=== PATIENT | female | born 1995 | race Caucasian/White ===

== ENCOUNTER 2017-12-15 16:28 | Emergency (ER) | payer OTHER ==
[~2017-12-15] VITALS: Ht 162.6 cm; Wt 87.1 kg
[~2017-12-15 16:28] MED LIST: BCPILLS PO; TTR500 PO
[2017-12-15 16:30] VITALS: TEMP 36.8; Ht 162.6 cm; Wt 87.1 kg
[2017-12-15] MEDS ORDERED: ONDANSETRON INJ 2 MG/ML 2 ML VIAL IV STA (16:44)
[2017-12-15] MEDS ORDERED: SODIUM CHLORIDE 0.9% 1000ML 1,000 ML IV STA (16:44)
--- NOTE | 2017-12-15 16:51 | EMERGENCY ROOM VISIT NOTE ---
History Report prepared by Matt: Paxton Villalpando Under the Supervision of: Dr. Tad Powell D.O. First contact with patient: 16:42 Chief Complaint: ABDOMINAL PAIN Stated Complaint: PAIN IN LOWER RIGHT SIDE TO MIDDLE Nursing Triage Summary: Triage Notes: Patient ambulatory to triage with an upright and steady gait, states "I have pain in my lower right side that radiates into the center of my pelvis. I work for [employer] and they made me come here. I don't know if it's related to my IUD or what. The pain started about a week ago and was cramping until today. The pain is sharper today. I have been spotting a little bit and had discharge earlier in the week. When I pee there is no pressure. It just trickles out. I have been nauseated on and off. I was constipated until this morning, I had the diarrhea." History of Present Illness The patient is a 22 year old female who presents to the Emergency Room with complaints of lower abdominal pain. The patient describes intermittent sharp abdominal pain which began approximately 1 week ago. She states the pain is intermittent. The pain is sometimes worsened with movement but not always. The patient has not been sexually active over the last week. She denies having any vaginal discharge. She denies having any rashes. She has noticed some spotting. She has not had any vomiting but does complain of some nausea. She had one loose bowel movement this morning but noticed no blood or mucus. She states the pain is relieved somewhat with rest. She has not seen her family doctor for this discomfort. She works at [employer] and coworkers encouraged her to come to the ER because at one point this morning the pain was very severe. The patient did not have a fever. She denies having any chest pain or leg swelling. She denies having any recent fevers. The patient does have an IUD. Source of History: patient Onset: 1 week ago Position: abdomen (Lower) Quality: sharp Timing: intermittent Modifying Factors (Worsening): movement Modifying Factors (Relieving): rest Associated Symptoms: + nausea, + diarrhea, No vomiting, No hematochezia Review of Systems See HPI for pertinent positives & negatives. A total of 10 systems reviewed and were otherwise negative. Past Medical & Surgical Medical Problems: (1) Anxiety (2) Depression Anxiety Depression Family History Cancer Diabetes mellitus Heart disease Hypertension Kidney disease Kidney stones Lung disease Social History Smoking Status: Never Smoker Smokeless Tobacco Use: No Alcohol Use: occasionally Drug Use: none Marital Status: single Current/Historical Medications Scheduled Fluoxetine (Prozac), 10 MG PO DAILY Scheduled PRN Lorazepam (Ativan), 0.5-1 TAB PO UD PRN for Anxiety Miscellaneous Medications Iud's (Paragard Intrauterine Cigar Head Perforator) Allergies Coded Allergies: Penicillins (Unverified Allergy, Mild, 12/15/17) Sulfa Drugs (Unverified Allergy, Mild, 12/15/17) Physical Exam Vital Signs Date Time Temp Pulse Resp B/P (MAP) Pulse Ox O2 Delivery O2 Flow Rate FiO2 12/15/17 20:48 80 18 116/79 99 12/15/17 18:23 109 20 134/80 98 Room Air 12/15/17 16:30 36.8 121 20 158/101 98 Room Air Physical Exam GENERAL: Patient is awake alert in no acute distress patient is resting comfortably and showing no signs of anxiety EYES: The conjunctivae are clear. The pupils are round and reactive. EARS, NOSE, MOUTH AND THROAT: The nose is without any evidence of any deformity. Mucous membranes are moist tongue is midline NECK: The neck is nontender and supple. RESPIRATORY: Normal respiratory effort is noted there is no evidence of wheezing rhonchi or rales CARDIOVASCULAR: Regular rate and rhythm noted there no murmurs rubs or gallops normal S1 normal S2 GASTROINTESTINAL: The abdomen is nondistended. The abdomen is soft. There is significant tenderness in the suprapubic region as well as the right lower quadrant. There is no guarding. BACK: No midline tenderness or or step-off noted range of motion in flexion extension as well as rotation no signs of muscle spasm noted MUSCULOSKELETAL/EXTREMITIES: There is no evidence of gross deformity full range of motion is noted in the hips and shoulders SKIN: There is no obvious evidence of any rash. There are no petechiae, pallor or cyanosis noted. NEUROLOGIC: Patient is awake alert and oriented x3. Medical Decision & Procedures ER Provider Diagnostic Interpretation: Radiology results as stated below per my review and radiologist interpretation: ABD/PELVIS IV CONTRAST ONLY CT DOSE: 612.11 mGy.cm HISTORY: Pain rlq pain TECHNIQUE: Multiaxial CT images of the abdomen and pelvis were performed following the use of intravenous contrast. A dose lowering technique was utilized adhering to the principles of ALARA. COMPARISON STUDY: None. FINDINGS: The lung bases are clear. The liver, spleen, gallbladder, pancreas, kidneys, and adrenal glands are within normal limits. No bowel wall thickening or obstruction. The pelvic organs are unremarkable. No suspicious lytic or blastic osseous lesions. Small amount of free fluid within the pelvic cul-de-sac. Intrauterine device considered low-lying with the inferior margin within the cervix. Nonobstructive bowel pattern. The appendix is seen only in part and appears unremarkable. IMPRESSION: 1. Small to moderate free fluid within the pelvic cul-de-sac. 2. This potentially relates to reactive change of the low lying intrauterine device, versus the possibility of a recently ruptured ovarian cyst versus physiologic change. 3. Remainder of the study is remarkable for low-lying intrauterine device with the inferior margin within the cervix. 4. Otherwise negative study. The above report was generated using voice recognition software. It may contain grammatical, syntax or spelling errors. Electronically signed by: Dereje Eid M.D. 12/15/2017 7:33 PM Dictated Date/Time: 12/15/2017 7:26 PM APPENDIX ULTRASOUND HISTORY: Flank pain RLQ pain COMPARISON: None. FINDINGS: Transabdominal scanning of the right lower quadrant was performed. The appendix was not identified. There are no fluid collections or masses within the right lower quadrant. IMPRESSION: The appendix was not identified. The above report was generated using voice recognition software. It may contain grammatical, syntax or spelling errors. Electronically signed by: Dereje Eid M.D. 12/15/2017 6:11 PM Dictated Date/Time: 12/15/2017 6:11 PM PELVIC COMPLETE NON OB CLINICAL HISTORY: RLQ pain PAIN COMPARISON STUDY: None FINDINGS: The uterus measured 7.5 cm. Intrauterine device within the lower uterine segment.. The endometrial stripe measured 8 mm. The right ovary measured 3.4 cm with normal vascular flow. The left ovary measured 3.9 cm with normal vascular flow. There is no ultrasonographic evidence of ovarian torsion. It should be noted that ovarian torsion can be present with normal Doppler ultrasonographic findings. There was no evidence of pathologic free pelvic fluid. IMPRESSION: 1. Intrauterine device within the lower uterine segment. 2. Otherwise negative pelvic ultrasound. The above report was generated using voice recognition software. It may contain grammatical, syntax or spelling errors. Electronically signed by: Dereje Eid M.D. 12/15/2017 6:13 PM Dictated Date/Time: 12/15/2017 6:11 PM Laboratory Results 12/15/17 16:45 Red Blood Count 4.91, Mean Corpuscular Volume 87.0, Mean Corpuscular Hemoglobin 30.5, Mean Corpuscular Hemoglobin Concent 35.1, Mean Platelet Volume 9.3, Neutrophils (%) (Auto) 68.0, Lymphocytes (%) (Auto) 23.4, Monocytes (%) (Auto) 7.3, Eosinophils (%) (Auto) 0.4, Basophils (%) (Auto) 0.6, Neutrophils # (Auto) 6.76, Lymphocytes # (Auto) 2.33, Monocytes # (Auto) 0.73, Eosinophils # (Auto) 0.04, Basophils # (Auto) 0.06 12/15/17 16:45 Test 12/15/17 16:44 12/15/17 16:45 White Blood Count 9.95 K/uL (4.8-10.8) Red Blood Count 4.91 M/uL (4.2-5.4) Hemoglobin 15.0 g/dL (12.0-16.0) Hematocrit 42.7 % (37-47) Mean Corpuscular Volume 87.0 fL (80-100) Mean Corpuscular Hemoglobin 30.5 pg (25-34) Mean Corpuscular Hemoglobin Concent 35.1 g/dl (32-36) Platelet Count 328 K/uL (130-400) Mean Platelet Volume 9.3 fL (7.4-10.4) Neutrophils (%) (Auto) 68.0 % Lymphocytes (%) (Auto) 23.4 % Monocytes (%) (Auto) 7.3 % Eosinophils (%) (Auto) 0.4 % Basophils (%) (Auto) 0.6 % Neutrophils # (Auto) 6.76 K/uL (1.4-6.5) Lymphocytes # (Auto) 2.33 K/uL (1.2-3.4) Monocytes # (Auto) 0.73 K/uL (0.11-0.59) Eosinophils # (Auto) 0.04 K/uL (0-0.5) Basophils # (Auto) 0.06 K/uL (0-0.2) RDW Standard Deviation 39.4 fL (36.4-46.3) RDW Coefficient of Variation 12.4 % (11.5-14.5) Immature Granulocyte % (Auto) 0.3 % Immature Granulocyte # (Auto) 0.03 K/uL (0.00-0.02) Urine Color YELLOW Urine Appearance CLEAR (CLEAR) Urine pH 7.0 (4.5-7.5) Urine Specific [place] 1.020 (1.000-1.030) Urine Protein NEG (NEG) Urine Glucose (UA) NEG (NEG) Urine Ketones NEG (NEG) Urine Occult Blood NEG (NEG) Urine Nitrite NEG (NEG) Urine Bilirubin NEG (NEG) Urine Urobilinogen NEG (NEG) Urine Leukocyte Esterase NEG (NEG) Anion Gap 7.0 mmol/L (3-11) Est Creatinine Clear Calc Drug Dose 109.0 ml/min Estimated GFR () 111.2 Estimated GFR (Non- 95.9 BUN/Creatinine Ratio 6.1 (10-20) Calcium Level 9.0 mg/dl (8.5-10.1) Total Bilirubin 0.3 mg/dl (0.2-1) Direct Bilirubin 0.1 mg/dl (0-0.2) Aspartate Amino Transf (AST/SGOT) 8 U/L (15-37) Alanine Aminotransferase (ALT/SGPT) 16 U/L (12-78) Alkaline Phosphatase 59 U/L (45-117) Total Protein 8.8 gm/dl (6.4-8.2) Albumin 4.7 gm/dl (3.4-5.0) Human Chorionic Gonadotropin, Qual NEG (NEG) Laboratory results per my review. Medications Administered Medications (Trade) Dose Ordered Sig/Shorty Route Start Time Stop Time Status Last Admin Dose Admin Ondansetron HCl (Zofran Inj) 4 mg NOW STAT IV 12/15/17 16:44 12/15/17 16:46 DC 12/15/17 16:57 4 MG Sodium Chloride 1,000 ml @ 999 mls/hr Q1H1M STAT IV 12/15/17 16:44 12/15/17 17:44 DC 12/15/17 16:56 999 MLS/HR ED Course 1642: The patient was evaluated in room C8. A complete history and physical examination were performed. 1644: Ordered Sodium Chloride 1000 mL @ 999 mL/hr IV, Zofran 4 mg IV. 2020: Upon reevaluation, the patient is resting in bed. I discussed the results and treatment plan with her. She verbalized agreement of the treatment plan. The patient was discharged home. Medical Decision Prior records/ancillary studies reviewed. Triage Nursing notes reviewed. Differential diagnosis: Etiologies such as appendicitis, diverticulitis, PUD, biliary pathology, UTI, pancreatitis, obstruction, mesenteric ischemia, aortic pathology, infections, inflammatory bowel disease, renal colic, as well as others were entertained. The patient is a 22-year-old female who presented to the emergency department for an evaluation of lower abdominal pain. The patient states that initially her pain was sharp. The pain was intermittent. Her physical exam did not appear to be consistent with an acute surgical abdomen. She did appear to have some right lower quadrant tenderness I thought this could be consistent with appendicitis. Ultrasound did not reveal any acute cause for the patient's pain. For this reason CT abdomen and pelvis was obtained. Patient was treated with IV fluids and IV Zofran. I discussed patient's laboratory and radiographic studies with her. At this time it does appear to be consistent with a migrating IUD. She was found to have some free fluid in the pelvis which could be related to an ovarian cyst. I discussed some of these possibilities with her. At this time I recommended that she call her primary OB /HEALTH AID physician and schedule a follow-up appointment. Also recommended that she continue all medications as prescribed and return to the emergency department immediately if symptoms change worsen or the need arise. The patient denied at this could be related to any sexually transmitted disease and at this time she states that she has no discharge but does have some spotting. Medication Reconcilliation Current Medication List: was personally reviewed by me Blood Pressure Screening Patient's blood pressure: Elevated blood pressure Blood pressure disposition: Elevated BP felt to be situational Impression Primary Impression: Right lower quadrant abdominal pain Scribe Attestation The scribe's documentation has been prepared under my direction and personally reviewed by me in its entirety. I confirm that the note above accurately reflects all work, treatment, procedures, and medical decision making performed by me. Departure Information Dispostion Home / Self-Care Referrals Ronaldo Nunez M.D. (PCP) Forms HOME CARE DOCUMENTATION FORM, IMPORTANT VISIT INFORMATION Patient Instructions My [facility] Additional Instructions Call your primary [facility] [employer] physician in the morning to schedule a follow-up appointment. Continue to use Motrin and Tylenol as directed for pain. Rest and avoid any strenuous activity. Return to the emergency department immediately if symptoms change worsen or the need arises.
[2017-12-15 17:01] LABS: BASO % 0.6 %; BASO ABS # 0.06 K/uL (0-0.2); EOS % 0.4 %; EOS ABS # 0.04 K/uL (0-0.5); HEMATOCRIT 42.7 % (37-47); IG# 0.03 K/uL (0.00-0.02); LYMPH % 23.4 %; LYMPH ABS # 2.33 K/uL (1.2-3.4); MEAN CORPUSCULAR HEMOGLOBIN 30.5 pg (25-34); MEAN CORPUSCULAR HGB CONC 35.1 g/dl (32-36); MEAN PLATELET VOLUME 9.3 fL (7.4-10.4); MONO % 7.3 %; MONO ABS # 0.73 K/uL (0.11-0.59); NEUT ABS # 6.76 K/uL (1.4-6.5); PLATELET COUNT 328 K/uL (130-400); RED CELL DISTRIBUTION WIDTH CV 12.4 % (11.5-14.5); RED CELL DISTRIBUTION WIDTH SD 39.4 fL (36.4-46.3); WHITE BLOOD COUNT 9.95 K/uL (4.8-10.8)
[2017-12-15 17:23] LABS: ALBUMIN 4.7 gm/dl (3.4-5.0); CREATININE 0.85 mg/dl (0.60-1.20); POTASSIUM 3.2 mmol/L (3.5-5.1); TOTAL PROTEIN 8.8 gm/dl (6.4-8.2)
[2017-12-15] MEDS ORDERED: LORA-741 PO (17:49)
[2017-12-15] MEDS ORDERED: FLUO10CA48 PO (17:49)
[2017-12-15] MEDS ORDERED: IUD'IUD (17:49)
--- NOTE | 2017-12-15 18:12 | DIAGNOSTIC IMAGING REPORT ---
APPENDIX ULTRASOUND HISTORY: Flank pain RLQ pain COMPARISON: None. FINDINGS: Transabdominal scanning of the right lower quadrant was performed. The appendix was not identified. There are no fluid collections or masses within the right lower quadrant. IMPRESSION: The appendix was not identified. The above report was generated using voice recognition software. It may contain grammatical, syntax or spelling errors. Electronically signed by: Dereje Eid M.D. 12/15/2017 6:11 PM Dictated Date/Time: 12/15/2017 6:11 PM
--- NOTE | 2017-12-15 18:14 | DIAGNOSTIC IMAGING REPORT ---
PELVIC COMPLETE NON OB CLINICAL HISTORY: RLQ pain PAIN COMPARISON STUDY: None FINDINGS: The uterus measured 7.5 cm. Intrauterine device within the lower uterine segment.. The endometrial stripe measured 8 mm. The right ovary measured 3.4 cm with normal vascular flow. The left ovary measured 3.9 cm with normal vascular flow. There is no ultrasonographic evidence of ovarian torsion. It should be noted that ovarian torsion can be present with normal Doppler ultrasonographic findings. There was no evidence of pathologic free pelvic fluid. IMPRESSION: 1. Intrauterine device within the lower uterine segment. 2. Otherwise negative pelvic ultrasound. The above report was generated using voice recognition software. It may contain grammatical, syntax or spelling errors. Electronically signed by: Dereje Eid M.D. 12/15/2017 6:13 PM Dictated Date/Time: 12/15/2017 6:11 PM
[2017-12-15] MEDS ORDERED: OPTIRAY 320 IV PRN (18:45)
--- NOTE | 2017-12-15 19:34 | DIAGNOSTIC IMAGING REPORT ---
ABD/PELVIS IV CONTRAST ONLY CT DOSE: 612.11 mGy.cm HISTORY: Pain rlq pain TECHNIQUE: Multiaxial CT images of the abdomen and pelvis were performed following the use of intravenous contrast. A dose lowering technique was utilized adhering to the principles of ALARA. COMPARISON STUDY: None. FINDINGS: The lung bases are clear. The liver, spleen, gallbladder, pancreas, kidneys, and adrenal glands are within normal limits. No bowel wall thickening or obstruction. The pelvic organs are unremarkable. No suspicious lytic or blastic osseous lesions. Small amount of free fluid within the pelvic cul-de-sac. Intrauterine device considered low-lying with the inferior margin within the cervix. Nonobstructive bowel pattern. The appendix is seen only in part and appears unremarkable. IMPRESSION: 1. Small to moderate free fluid within the pelvic cul-de-sac. 2. This potentially relates to reactive change of the low lying intrauterine device, versus the possibility of a recently ruptured ovarian cyst versus physiologic change. 3. Remainder of the study is remarkable for low-lying intrauterine device with the inferior margin within the cervix. 4. Otherwise negative study. The above report was generated using voice recognition software. It may contain grammatical, syntax or spelling errors. Electronically signed by: Dereje Eid M.D. 12/15/2017 7:33 PM Dictated Date/Time: 12/15/2017 7:26 PM
[2017-12-15 20:48] VITALS: BP 116/79; PULSE 80; O2SAT 99
== END 2017-12-15 20:51 | disposition home or self-care (01) ==
LOC: C.EDB 16:30 → C.EDC 20:51
DX: R10.31 Right lower quadrant pain (principal); F41.9 Anxiety disorder, unspecified; F32.9 Major depressive disorder, single episode, unspecified; Z79.899 Other long term (current) drug therapy; Z88.0 Allergy status to penicillin; Z88.2 Allergy status to sulfonamides

== ENCOUNTER 2023-07-08 18:44 | Inpatient (IN) ==
[2023-07-08] MEDS ORDERED: OXYTOCIN 30 UNITS/NSS 30 UNITS/500 ML BAG IV PRN (19:26)
[2023-07-08] MEDS ORDERED: LIDOCAINE 1% LOCAL 20 ML VIAL INFIL PRN (19:26)
--- NOTE | 2023-07-08 19:31 | History & Physical Report ---
Date of Service July 08, 2023 History of Present Illness Chief Complaint: ruptured membranes Primary Care Provider: Ronaldo Nunez MD 28 F P0000 at 36.2 weeks with SROM at 6 PM tonight clear fluid. GBS is unknown. Allergies Allergy/AdvReac Type Severity Reaction Status Date / Time Penicillins Allergy Mild Unverified 12/15/17 16:30 Sulfa (Sulfonamide Allergy Mild Unverified 12/15/17 16:30 Antibiotics) Home Medications Medication Instructions Recorded Confirmed Type 1 tab PO DAILY 03/10/23 03/10/23 History cetirizine 10 mg tablet (Zyrtec) 10 mg PO DAILY 03/10/23 03/10/23 History fluoxetine 20 mg tablet 20 mg PO DAILY 03/10/23 03/10/23 History fluticasone propionate 50 1 spray intranasal DAILY 03/10/23 03/10/23 History mcg/actuation nasal spray,suspension Patient History Social History Smoking Status: Never smoker Preferred Language: Urdu Feels Safe at Home: Yes OB History primip [employer] History neg Review of Systems All systems reviewed & are unremarkable except as noted in HPI & below Physical Exam Constitutional: WD/WN, vitals as above Eyes: PERRL, conjunctivae normal, anicteric sclerae Respiratory: normal respiratory effort, lungs clear to auscultation Cardiovascular: RRR, no murmur, no edema Musculoskeletal: Extremities: extremities normal to inspection Skin: no rashes, warm and dry Neurologic: patellar DTR's 2+ bilat, sensation intact Psychiatric: A+Ox3, euthymic affect Genitourinary: no vaginal lesions, no adnexal mass Manual OB Exam: + cervical dilation 2 cm, + cervical effacement 90%, + station -2 and + amniotic fluid clear OB Exam Monitor Tracing: + external FHT monitor used, + external uterine monitor used, + category I and + normal FHT variability EFW 7.5 lbs. Results & Data Vital Signs (Past 12 Hours) Vital Signs Pulse BP 07/08/23 18:56 107 H 119/82 Code Status & VTE Plan VTE Prophylaxis Plan VTE Prophylaxis will be ordered: No
[2023-07-08] MEDS ORDERED: SODIUM CHLORIDE 0.9% 250 ML IV PRN (19:55)
[2023-07-08 21:04] LABS: Hematocrit (blood only) 33.9 % (37.0-47.0); Hemoglobin 11.6 g/dl (12.0-16.0); Mean Corpuscular Hemoglobin 29.5 pg (25.0-34.0); Mean Corpuscular Hgb Conc 34.2 g/dL (32.0-36.0); Mean Corpuscular Volume 86.3 fL (80.0-100.0); Mean Platelet Volume 9.7 fL (9.4-12.4); Platelet Count 291 K/uL (130-400); RDW Coefficient of Variation 12.7 % (11.5-14.5); RDW Standard Deviation 39.6 fL (36.4-46.3); Red Blood Count 3.93 M/uL (4.20-5.40); White Blood Count 17.23 K/ul (4.8-10.8)
--- OUTSIDE RECORDS SUMMARY | 2023-07-09 00:14 | External Medical Summary | Summary of Care ---
Author Name Unknown Organization [facility] Address [address] [place] [address] Phone [phone] Care Team Providers Care Rfid Specialist Name Role Phone Ronaldo Nunez MD Primary Care Provider +1- [phone] Reason for Visit * Reason Comments Return Visit Encounter Details Date Type Department Care Team (Late st Contact Info) Description 06/14/2023 8:30 AM EST [facility] [address] [place] [address] Liza Washington CRNP [address] [place] [address] Normal in third trimester*; Anxiety during ; Depression complicating , antepartum; Obesity in , antepartum; Uterine size date discrepancy Allergies Active Allergy Reactions Criticality Noted Date Comments Gold Rash 04/19/2018 Penicillins 12/17/1998 rash Sulfa Antibiotics 12/17/1998 rash documented as of this encounter (statuses as of 06/14/2023) Medications Medication Sig Dispensed Refills Start Date End Date Status cetirizine (ZYRTEC) 10 MG Tablet Take 1 Tab by mouth daily as needed (itching, rash). 0 03/16/2018 Active 28-0.8 MG Oral Tablet Take by mouth. 0 Active FLUoxetine HCl 20 MG Oral Tablet (PROzac) take 1 tablet by mouth every morning 30 Tablet 2 02/06/2023 Active Fluticasone Propionate 50 MCG/ACT Nasal Suspension (Flonase) Administer 1 [place] into nostril in the morning. 0 Active FLUoxetine HCl 20 MG Oral Tablet (PROzac) Take one tab by mouth every morning 90 Tablet 0 03/23/2023 Active Breast Pump Dispense double electric breast pump. Dx:Z39.1 1 Each 0 05/18/2023 Active documented as of this encounter (statuses as of 06/14/2023) Active Problems Problem Noted Date Diagnosed Date Normal 12/28/2022 Anxiety during 12/28/2022 Depression complicating , antepartum Overview: On Prozac. Sees Hemalatha Webber PA-C at [facility] for medication management. Sees a therapist monthly. Obesity in , antepartum 12/28/2022 Overview: Class 1, early GTT normal Major depressive disorder, recurrent, moderate 0 01/12/2021 Depression with anxiety 01/21/2019 Panic disorder 10/14/2015 Obesity, Class I, BMI 30.0-34.9 (see actual BMI) 06/16/2011 ACNE VULGARIS 05/10/2006 Allergic rhinitis 04/24/2000 Estimated Date of Delivery Comme nts Yes 08/03/2023 Based on last me nstrual period of 10/27/2022 documented as of this encounter (statuses as of 06/14/2023) Resolved Problems Problem Noted Date Diagnosed Date Resolved Date Pain in limb 08/18/2011 09/26/2014 Injury of hand 08/18/2011 09/26/2014 Sprain of wrist 08/18/2011 09/26/2014 Otalgia 05/10/2006 09/26/2014 ACUTE SWIMMERS' EAR, RIGHT 05/10/2006 0 09/26/2014 Epistaxis 05/10/2006 01/03/2018 ADVANCE DIRECTIVE INFORMATION 02/22/2005 01/03/2018 Overview: Not applicable (under age of 18) SINUS ARRHYTHMIA 01/21/2002 03/02/2018 Undiagnosed cardiac murmurs 01/21/2002 06/16/2011 OTITIS MEDIA, RECURRENT, NOW WITH PE TUBES 04/24/2000 09/26/2014 Routine child health exam 04/24/2000 Otitis media 09/26/2014 Depression 03/08/2019 documented as of this encounter (statuses as of 06/14/2023) Immunizations Name Administration Dates Next Due COVID-19 mRNA, LNP-s, No Pre serve, 2-Dose Series (Pfizer) 05/19/2021,06/02/2020,05/12/2020 HPV Vaccine, 9-Valent 09/04/2018,03/29/2018,10/14 Meningococcal Conjugate Vacc ine (Menactra/Menveo) 03/16/2009 Seasonal Influenza, PF, 6 M & above, IM , (FluLaval or Fluzone) 03/08/2023,03/11/2022,03/03/2021 Seasonal Influenza, Quadriva lent, No Preserve, IM 02/01/2020,02/27/2019,02/27/2018,06/13 Seasonal Influenza, Split, I IV3, With Preserve, Inj 02/13/2016 TD, Preservative Free 11/25/2015 TDAP (age 10 and older)(Boostrix) 05/18/2023 Varicella Vaccine (Chicken Pox) 06/13/2007 documented as of this encounter Social History Tobacco Use Types Packs/Day Years Used Date Smoking Tobacco: Never Passive Smoke Exposure: Never Smokeless Tobacco: Never Comments:non smoking househo ld Alcohol Use Standard Drinks/Week Comments Not Currently 0 (1 standard drink = 0.6 oz pur e alcohol) once a month if that PHQ-2 Answer Date Recorded PHQ Adult Total Score 0 02/08/2022 Hunger Vital Sign Answer Date Recorded Within the past 12 months, y ou worried that your food would run out before you got the money to buy more. Never true 12/29/19 23 Within the past 12 months, t he food you bought just didn't last and you didn't have money to get more. Never true 12/28/2022 [place] Depression Scale Answer Date Recorded [place] Depression Scale Total 16 12/28/2022 The thought of harming myself has occurred to me . Never 12/28/2022 Estimated Date of Delivery Comme nts Yes 08/03/2023 Based on last me nstrual period of 10/27/2022 Sex and Gender Information Value Date Recorded Sex Assigned at Female 12/05/2018 3:55 PM EDT Gender Identity Female 12/05/2018 3:55 PM EDT Sexual Orientation Choose not to disclose 2022 6:28 AM EDT Job Start Date Occupation Industry Not on file Not on file Not on file documented as of this encounter Last Filed Vital Signs Vital Sign Reading Time Taken Comments Blood Pressure 118/74 06/14/2023 8:25 AM EST Pulse - - Temperature - - Respiratory Rate - - Oxygen Saturation - - Inhaled Oxygen Concentration - - Weight 113.9 kg (251 lb 3.2 oz) 06/14/2023 8:25 AM EST Height 165.1 cm (5' 5") 06/14/2023 8:25 AM EST Body Mass Index 41.8 06/14/2023 8:25 AM EST documented in this encounter Progress Notes * Liza Washington CRNP - 06/14/2023 8:30 AM EST 32w6d Increased pelvic pressure, otherwise well. Baby is active. No ctx, leaking or bleeding. Swelling in her feet, discussed remedies. Recommend CBE classes, looking at peds. S>D, will schedule growth scan. 2 week return WENDY Puri documented in this encounter Nursing Notes * Raquel Marley RN - 06/14/2023 8:26 AM EST Patient here for REECE visit 32w6d + FM No concerns Raquel Marley RN documented in this encounter Plan of Treatment Upcoming Encounters Date Type Department Care Team (Late st Contact Info) Description 06/14/2023 10:45 AM EST Imaging Radiology [facility] 2nd [facility] [address] [place] [address] 06/28/2023 8:15 AM EST Office Visit Gynecology/Obstetrics [facility] [address] [place] [address] Aniya Tomlinson CRNP [address] [place] [address] 02/12/2024 8:00 AM EDT Office Visit Family [facility] [address] [place] [facility] [place] [phone] Ronaldo Nunez MD [address] [place] [address] Scheduled Orders Name Type Priority Associated Diagnoses Orde r Schedule US PREG FOLLOW-UP EACH FETUS Medical Imaging Routine Uterine size date discrepancy Expected: 06/14/2023 (Approximate), Expires: 07/12/2024 Health Maintenance Due Date Last Done Comments COVID-19 Vaccine ( season) 2023 05/19/2021, 06/02/2020, 05/12/2020 Depression Screening 02/08/2023 02/08/2022 HPV/Co-Test 2023 Cervical Cancer Screening 08/23/2024 Pap Smear 08/23/2024 08/23/2021, 04/0 09/2018, 10/23/2015, Additional history exists DTaP,Tdap,and Td Vaccines (9 - Td or Tdap) 05/18/2033 05/18/2023, 11/25/2015, 02/22/2005, Additional history exists Hepatitis B Completed 01/04/1994, 05/15, 1993 MENINGOCOCCAL (MENACTRA/MENVEO) Aged Out 03/16/2009 No longer eligible based on patient's age to complete this topic GARDASIL-HPV IMMUNIZATION SERIES Addressed 09/04/2018, 03/29/2018, 11/06/2017, Additional history exists Overridden with the intention of not completing the topic Influenza Vaccine (FLU shot) Completed 03/08/2023, 03/11/2022, 03/03/2021, Additional history exists Pneumococcal Vaccine: Pediatrics (0 to 5 Years) and At-Risk Patients (6 to 64 Years) Aged Out No longer eligible based on patient's age to complete this topic documented as of this encounter Medical Devices Not on filedocumented as of this encounter Visit Diagnoses Diagnosis Normal in third trimester- Primary Anxiety during Depression complicating , antepartum Mental disorders of mother, antepartum Obesity in , antepartum Obesity complicating , childbirth, or the puerperium, antepartum condition or complication Uterine size date discrepancy Uterine size date discrepancy, antepartum condition or complication documented in this encounter Care Teams Rfid Specialist Relationship Specialty Start Date End Date Ronaldo Nunez MD [address] [place] [address] PCP - General 02/13/00 documented as of this encounter
--- OUTSIDE RECORDS SUMMARY | 2023-07-09 00:14 | External Medical Summary | Summary of Care ---
Author Name Unknown Organization [facility] Address [address] [place] [address] Phone [phone] Care Team Providers Care Travel Pta Name Role Phone Ronaldo Nunez MD Primary Care Provider [phone]- [phone] Reason for Visit * Reason Comments Return Visit Encounter Details Date Type Department Care Team (Late st Contact Info) Description 05/18/2023 10:30 AM EST Office Visit Gynecology/Obstetric s [facility] [address] [place] [address] Aniya Tomlinson CRNP [address] [place] [address] Normal in third trimester*; Anxiety during ; Depression complicating , antepartum; Obesity in , antepartum Allergies Active Allergy Reactions Criticality Noted Date Comments Gold Rash 04/19/2018 Penicillins 12/17/1998 rash Sulfa Antibiotics 12/17/1998 rash documented as of this encounter (statuses as of 05/18/2023) Medications Medication Sig Dispensed Refills Start Date [...] 50 MCG/ACT Nasal Suspension (Flonase) Administer 1 [place] into nostril in the morning. 0 Active FLUoxetine HCl 20 MG Oral Tablet (PROzac) Take one tab by mouth every morning 90 Tablet 0 03/23/2023 Active Breast Pump Dispense double electric breast pump. Dx:Z39.1 1 Each 0 05/18/2023 Active documented as of this encounter (statuses as of 05/18/2023) Active Problems Problem Noted Date Diagnosed Date Normal 12/28/2022 Anxiety during 12/28/2022 Depression complicating , antepartum Overview: On Prozac. Sees Hemalatha Webber PA-C at [facility] for medication management. Sees a therapist monthly. [...] as of this encounter (statuses as of 05/18/2023) Resolved Problems Problem Noted Date Diagnosed Date [...] as of this encounter (statuses as of 05/18/2023) Immunizations Name Administration Dates Next Due COVID-19 [...] money to get more. Never true 12/28/2022 [place] Depression Scale Answer Date Recorded [place] Depression Scale Total 16 12/28/2022 The thought [...] Sign Reading Time Taken Comments Blood Pressure 118/68 05/18/2023 10:19 AM EST Pulse - - Temperature - - Respiratory Rate - - Oxygen Saturation - - Inhaled Oxygen Concentration - - Weight 108.9 kg (240 lb) 05/18/2023 10:19 AM EST Height 167 cm (5' 5.75") 05/18/2023 10:19 AM EST Body Mass Index 39.03 05/18/2023 10:19 AM EST documented in this encounter Progress Notes * Aniya Tomlinson CRNP - 05/18/2023 10:35 AM EST 29w0d Complaints: none Feeling well. . Good FM. No contractions, bleeding, or LOF. Glucola, TDAP today. Breast pump rx today. WENDY Kohli * Carmela Zheng LPN - 05/18/2023 10:19 AM EST 29w0d Doing glucola Would like tdap documented in this encounter Nursing Notes * Carmela Zheng LPN - 05/18/2023 10:25 AM EST Patient here for tdap injection. Patient doing well no complaints. Injection given IM as ordered. Patient tolerated well. Patient to follow up as directed. Patient instructed to call if any complications. Patient verbalized understanding of instructions given and her follow up appt for 2 weeks Injection site: Left deltoid Medication Source: Dispensed stock medication documented in this encounter Plan of Treatment Upcoming Encounters Date Type Department Care Team (Late st Contact Info) Description 06/01/2023 8:15 AM EST Office Visit Gynecology/Obstetrics [facility] [address] [facility] [place] [address] Aniya Tomlinson CRNP [address] [place] [id number] 02/12/2024 8:00 AM EDT Office Visit [facility] [address] [place] [phone] Ronaldo Nunez MD [address] [place] [address] Health Maintenance Due Date Last Done Comments COVID-19 Vaccine ( season) 2023 05/19/2021, 06/02/2020, 05/12/2020 Depression Screening 02/08/2023 02/08/2022 HPV/Co-Test 2023 Cervical Cancer Screening 08/23/2024 Pap Smear 08/23/2024 08/23/2021, 0409/2018, 10/23/2015, Additional history exists DTaP,Tdap,and Td Vaccines [...] or the puerperium, antepartum condition or complication documented in this encounter Care Teams Travel Pta Relationship Specialty Start Date End Date Ronaldo Nunez MD [address] [place] [address] PCP - General 02/13/00 documented as of this encounter
--- OUTSIDE RECORDS SUMMARY | 2023-07-09 00:14 | External Medical Summary | Summary of Care ---
Author Name Unknown Organization [facility] Address [address] [place] [address] Phone [phone] Care Team Providers Care Rn Examiner Name Role Phone Ronaldo Nunez MD Primary Care Provider +1- [phone] Encounter Details Date Type Department Care Team (Late st Contact Info) Description 05/29/2023 Telephone Gynecology/Obstetrics [facility] [address] [place] [address] Lior De Souza MD [address] [place] [address] Allergies Active Allergy Reactions Criticality Noted Date Comments Gold Rash 04/19/2018 Penicillins 12/17/1998 rash Sulfa Antibiotics 12/17/1998 rash documented as of this encounter (statuses as of 05/29/2023) Medications Medication Sig Dispensed Refills Start Date [...] 50 MCG/ACT Nasal Suspension (Flonase) Administer 1 [place] into nostril in the morning. 0 Active FLUoxetine HCl 20 MG Oral Tablet (PROzac) Take one tab by mouth every morning 90 Tablet 0 03/23/2023 Active Breast Pump Dispense double electric breast pump. Dx:Z39.1 1 Each 0 05/18/2023 Active documented as of this encounter (statuses as of 05/29/2023) Active Problems Problem Noted Date Diagnosed Date Normal 12/28/2022 Anxiety during 12/28/2022 Depression complicating , antepartum Overview: On Prozac. Sees Hemalatha Webber PA-C at [place] for medication management. Sees a therapist monthly. [...] as of this encounter (statuses as of 05/29/2023) Resolved Problems Problem Noted Date Diagnosed Date [...] as of this encounter (statuses as of 05/29/2023) Immunizations Name Administration Dates Next Due COVID-19 [...] money to get more. Never true 12/28/2022 [place] Depression Scale Answer Date Recorded [place] Depression Scale Total 16 12/28/2022 The thought [...] on file documented as of this encounter Miscellaneous Notes * Telephone Encounter - Raquel Marley RN - 05/29/2023 2:44 PM EST Patient called in about a fall she just had at home. She was sitting in an office chair and leaned too far forward and fell off the chair onto her hands and feet. She caught herself. No hard fall or fall onto stomach. Denies leaking, bleeding, contractions or new onset pain. Patient reports + FM today. She was made aware to push fluids, and count movements over the next 2 hours, to ensure movements. Patient aware to call back with any changes, DFM, or questions. documented in this encounter Plan of Treatment Upcoming Encounters Date Type Department Care Team (Late st Contact Info) Description 06/01/2023 8:15 AM EST Office Visit Gynecology/Obstetrics [facility] [address] [place] [address] Aniya Tomlinson CRNP [address] [place] [address] 02/12/2024 8:00 AM EDT [facility] Visit [facility] [address] [facility] [phone] Ronaldo Nunez MD [address] [facility] [phone] Health Maintenance Due Date Last Done Comments COVID-19 Vaccine ( season) 2023 05/19/2021, 06/02/2020, 05/12/2020 Depression Screening 02/08/2023 02/08/2022 HPV/Co-Test 2023 Cervical Cancer Screening 08/23/2024 Pap Smear 08/23/2024 08/23/2021, 09/2018, 10/23/2015, Additional history exists DTaP,Tdap,and Td [...] Not on filedocumented as of this encounter Care Teams Rn Examiner Relationship Specialty Start Date End Date Ronaldo Nunez MD [address] [place] [address] PCP - General 02/13/00 documented as of this encounter
--- OUTSIDE RECORDS SUMMARY | 2023-07-09 00:14 | External Medical Summary | Summary of Care ---
Author Name Unknown Organization [facility] Address [address] [place] [address] Phone [phone] Care Team Providers Care Internet Assessor Name Role Phone Ronaldo Nunez MD Primary Care Provider +1- [phone] Reason for Visit * Reason Comments Outpatient Testing Encounter Details Date Type Department Care Team (Late st Contact Info) Description 05/18/2023 10:20 AM EST Laboratory Laboratory, [facility] [address] [place] [phone] [facility] [address] [place] [address] Normal in second trimester Allergies Active Allergy Reactions Criticality Noted Date [...] 50 MCG/ACT Nasal Suspension (Flonase) Administer 1 [place] into nostril in the morning. 0 Active FLUoxetine HCl 20 MG Oral Tablet (PROzac) Take one tab by mouth every morning 90 Tablet 0 03/23/2023 Active documented as of this encounter (statuses as of 05/18/2023) Active Problems Problem Noted Date Diagnosed Date Normal 12/28/2022 Anxiety during 12/28/2022 Depression complicating , antepartum Overview: On Prozac. Sees Hemalatha Webber PA-C at [place] for medication management. Sees a therapist monthly. [...] money to get more. Never true 12/28/2022 [place] Depression Scale Answer Date Recorded [place] Depression Scale Total 16 12/28/2022 The thought [...] on file documented as of this encounter Plan of Treatment Upcoming Encounters Date Type Department Care Team (Late st Contact Info) Description 06/01/2023 8:15 AM EST [facility] [address] [facility] [place] [address] Aniya Tomlinson CRNP [address] [place] [address] 02/12/2024 8:00 AM EDT Office Visit [facility] [address] [place] [phone] Ronaldo Nunez MD [address] [place] [address] Pending Results Name Type Priority Associated Diagnoses Date /Time 50-G GESTATIONAL GLUCOSE, 1 HOUR Lab Routine Normal in second trimester 05/18/2023 11:19 AM EST CBC WITH WBC DIFFERENTIAL AND ANEMIA REFLEX WORKUP Lab Routine Normal in second trimester 05/18/2023 11:19 AM EST SYPHILIS ANTIBODY SCREEN WITH REFLEX TO RPR Lab Routine Normal in second trimester 05/18/2023 11:19 AM EST ANEMIA CBC Lab Routine Normal in second trimester 05/18/2023 11:19 AM EST DIFFERENTIAL, AUTOMATED Lab Routine Normal in second trimester 05/18/2023 11:19 AM EST ANEMIA REFLEX CHEMISTRY HOLD Lab Routine Normal in second trimester 05/18/2023 11:19 AM EST SYPHILIS ANTIBODY SCREEN Lab Routine Normal in second trimester 05/18/2023 11:19 AM EST Health Maintenance Due Date Last Done Comments [...] this encounter Visit Diagnoses Diagnosis Normal in second trimester documented in this encounter Care Teams Internet Assessor Relationship Specialty Start Date End Date Ronaldo Nunez MD [address] [place] [address] PCP - General 02/13/00 documented as of this encounter
--- OUTSIDE RECORDS SUMMARY | 2023-07-09 00:14 | External Medical Summary | Summary of Care ---
Author Name Unknown Organization [facility] Address [address] [place] [address] Phone [phone] Care Team Providers Care Incident Response Coordinator Name Role Phone Ronaldo Nunez MD Primary Care Provider +1- [phone] Reason for Visit * Reason Comments Return Visit Encounter Details Date Type Department Care Team (Late st Contact Info) Description 06/28/2023 8:15 AM EST Office Visit [facility] [address] [place] [address] Aniya Tomlinson CRNP [address] [place] [address] Normal in third trimester*; Anxiety during ; Depression complicating , antepartum; Obesity in , antepartum; Excessive growth affecting management of , antepartum, single or unspecified fetus Allergies Active Allergy Reactions Criticality Noted Date Comments Gold Rash 04/19/2018 Penicillins 12/17/1998 rash Sulfa Antibiotics 12/17/1998 rash documented as of this encounter (statuses as of 06/28/2023) Medications Medication Sig Dispensed Refills Start Date [...] 50 MCG/ACT Nasal Suspension (Flonase) Administer 1 [place] into nostril in the morning. 0 Active FLUoxetine HCl 20 MG Oral Tablet (PROzac) Take one tab by mouth every morning 90 Tablet 0 03/23/2023 Active Breast Pump Dispense double electric breast pump. Dx:Z39.1 1 Each 0 05/18/2023 Active documented as of this encounter (statuses as of 06/28/2023) Active Problems Problem Noted Date Diagnosed Date LGA (large for gestational a ge) fetus affecting management of mother 06/19/2023 Overview: 94th %ile at 33 weeks Normal 12/28/2022 Anxiety during 12/28/2022 Depression complicating , antepartum Overview: On Prozac. Sees Hemalatha Webber PA-C at [place] for medication management. Sees a therapist monthly. [...] as of this encounter (statuses as of 06/28/2023) Resolved Problems Problem Noted Date Diagnosed Date [...] as of this encounter (statuses as of 06/28/2023) Immunizations Name Administration Dates Next Due COVID-19 mRNA, LNP-s, No Pre serve, 2-Dose Series ([employer]) 05/19/2021,06/02/2020,05/12/2020 HPV Vaccine, 9-Valent 09/04/2018,03/29/2018,10/14 Meningococcal Conjugate [...] money to get more. Never true 12/28/2022 Paris Depression Scale Answer Date Recorded Paris Depression Scale Total 7 06/28/2023 The thought of harming myself has occurred to me . Never 06/28/2023 Estimated Date of Delivery Comme nts Yes [...] Sign Reading Time Taken Comments Blood Pressure 118/70 06/28/2023 8:02 AM EST Pulse - - Temperature - - Respiratory Rate - - Oxygen Saturation - - Inhaled Oxygen Concentration - - Weight 115.7 kg (255 lb) 06/28/2023 8:02 AM EST Height 165.1 cm (5' 5") 06/28/2023 8:02 AM EST Body Mass Index 42.43 06/28/2023 8:02 AM EST documented in this encounter Progress Notes * Aniya Tomlinson CRNP - 06/28/2023 8:18 AM EST 34w6d Concerned about baby being LGA on u/s 2 weeks ago. Discussed this, will repeat u/s first week of July. Swelling in hands and feet, wearing support hose. Baby is active. No contractions, bleeding, or LOF. WENDY Kohli documented in this encounter Nursing Notes * Carly Mcgarry LPN - 06/28/2023 8:07 AM EST 34W6D Wouldlike to discuss US. Uncomfortable, swollen and sore hands, pelvic pressure. Given labor instructions, has decided on delivery at [facility]. documented in this encounter Plan of Treatment Upcoming Encounters Date Type Department Care Team (Late st Contact Info) Description 07/12/2023 9:00 AM EST Office Visit Gynecology/Obstetrics [facility] [address] [place] [address] Lisa Lombardo PA-C [address] [place] [address] 07/19/2023 1:30 PM EST Imaging Radiology [facility] 2nd Floor, [place] [address] [place] [address] 07/19/2023 2:15 PM EST Office Visit Gynecology/Obstetrics [facility] [address] [place] [address] Aniya Tomlinson CRNP [address] [place] [address] 07/24/2023 1:30 PM EDT Office Visit Gynecology/Obstetrics [facility] [address] [facility] [place] [address] Jolynn Aguiar, [address] [place] [address] 07/31/2023 9:15 AM EDT Office Visit Gynecology/Obstetrics [facility] [address] [facility] [place] [address] Lisa Lombardo PA-C [address] [place], [place] [address] 02/12/2024 8:00 AM EDT Office Visit [facility] [address] [facility] [phone] Ronaldo Nunez [facility] [address] [facility] [address] Scheduled Orders Name Type Priority Associated Diagnoses Orde r Schedule US PREG FOLLOW-UP EACH FETUS Medical Imaging Routine Excessive growth affecting management of , antepartum, single or unspecified fetus Expected: 07/12/2023 (Approximate), Expires: 07/26/2024 Health Maintenance Due Date Last Done Comments [...] or the puerperium, antepartum condition or complication Excessive growth affecting management of , antepartum, single or unspecified fetus documented in this encounter Care Teams Incident Response Coordinator Relationship Specialty Start Date End Date Ronaldo Nunez MD [address] [place] [facility] [place] [address] PCP - General 02/13/00 documented as of this encounter
--- OUTSIDE RECORDS SUMMARY | 2023-07-09 00:14 | External Medical Summary | Summary of Care ---
Author Name Unknown Organization [facility] Address [address] [place] [address] Phone [phone] Care Team Providers Care Quality Nurse Name Role Phone Ronaldo Nunez MD Primary Care Provider +1- [phone] Reason for Visit * Reason Comments Return Visit Encounter Details Date Type Department Care Team (Late st Contact Info) Description 06/01/2023 8:15 AM EST Office Visit Gynecology/Obstetric s [facility] [address] [place] [address] Aniya Tomlinson CRNP [address] [place] [address] Normal in third trimester*; Anxiety during ; Depression complicating , antepartum; Obesity in , antepartum; Decreased movements in third trimester, single or unspecified fetus Allergies Active Allergy Reactions Criticality Noted Date Comments Gold Rash 04/19/2018 Penicillins 12/17/1998 rash Sulfa Antibiotics 12/17/1998 rash documented as of this encounter (statuses as of 06/01/2023) Medications Medication Sig Dispensed Refills Start Date [...] 50 MCG/ACT Nasal Suspension (Flonase) Administer 1 [place] into nostril in the morning. 0 Active FLUoxetine HCl 20 MG Oral Tablet (PROzac) Take one tab by mouth every morning 90 Tablet 0 03/23/2023 Active Breast Pump Dispense double electric breast pump. Dx:Z39.1 1 Each 0 05/18/2023 Active documented as of this encounter (statuses as of 06/01/2023) Active Problems Problem Noted Date Diagnosed Date Normal 12/28/2022 Anxiety during 12/28/2022 Depression complicating , antepartum Overview: On Prozac. Sees Hemalatha Webber PA-C at [place] for medication management. Sees a therapist monthly. [...] as of this encounter (statuses as of 06/01/2023) Resolved Problems Problem Noted Date Diagnosed Date [...] as of this encounter (statuses as of 06/01/2023) Immunizations Name Administration Dates Next Due COVID-19 [...] money to get more. Never true 12/28/2022 Creswell Depression Scale Answer Date Recorded Cres[place] Depression Scale Total 16 12/28/2022 The thought [...] Sign Reading Time Taken Comments Blood Pressure 120/62 06/01/2023 8:16 AM EST Pulse - - Temperature - - Respiratory Rate - - Oxygen Saturation - - Inhaled Oxygen Concentration - - Weight 110.7 kg (244 lb) 06/01/2023 8:16 AM EST Height - - Body Mass Index 39.68 05/18/2023 10:19 AM EST documented in this encounter Progress Notes * Aniya Tomlinson CRNP - 06/01/2023 8:30 AM EST 31w Hasn't felt much FM yet this morning. Has been up for about 3 hours, has had breakfast. Normally feeling some movement at this point in the morning. Having some round ligament pain, suggested belly band. No bleeding or LOF. WENDY Kohli ASSESSMENT assessment with Non-stress Test completed on 06/01/2023 at 31weeks gestation for indication ofdecreased movement heart baseline: 135 bpm Variability: Moderate Decelerations: absent Accelerations: present Contractions: None NST start time: 0831 NST stop time: 0854 NST strip reviewed, interpreted, and approved by OB provider, WENDY Kohli . NST strip stored in clinic storage file Pt documented 20 movements during NST. * Carmela Zheng LPN - 06/01/2023 8:16 AM EST 31w0d Fell on Monday landed on knees documented in this encounter Plan of Treatment Upcoming Encounters Date Type Department Care Team (Late st Contact Info) Description 06/14/2023 8:30 AM EST [facility] [address] [place] [address] Liza [place] CRNP [address] [place] [address] 02/12/2024 8:00 AM EDT Office Visit [facility] [address] [place] [address] Ronaldo Nunez MD [address] [place] [address] Health Maintenance Due Date Last Done Comments [...] or the puerperium, antepartum condition or complication Decreased movements in third trimester, single or unspecified fetus documented in this encounter Care Teams Quality Nurse Relationship Specialty Start Date End Date Ronaldo Nunez MD [address] [place] [address] PCP - General 02/13/00 documented as of this encounter
--- OUTSIDE RECORDS SUMMARY | 2023-07-09 00:14 | External Medical Summary ---
Author Name Unknown Address Unknown Organization [id number]:[facility] [place] [facility] [address] [place] [address] Laboratory Report Ordering Provider Test Date Status JOSE MIGUEL ALLEN 05/18/2023 11:19:24 Final Observation Date Value Abnormality Reference (Units ) Status WBC, Total 05/18/2023 11:19:24 16.79 Above high normal 4 .00-10.80 (K/uL) Final RBC 05/18/2023 11:19:24 4.10 3.85-5.15 (M/uL) Final Hemoglobin 05/18/2023 11:19:24 12.4 12.0-15.3 (g/dL) Final Anemia reflex testing trigge rs on a HGB < 12.0 for Females and HGB < 13.0 for Males in accordance with the WHO Anemia Guidelines
Anemia reflex testing triggers on a HGB < 12.0 for Females and HGB < 13.0 for Males in accordance with the WHO Anemia Guidelines HCT 05/18/2023 11:19:24 39.0 36.0-45.2 (%) Final MCV 05/18/2023 11:19:24 95.1 81.5-97.5 (fL) Final MCH 05/18/2023 11:19:24 30.2 27.0-34.0 (pg) Final MCHC 05/18/2023 11:19:24 31.8 32.0-36.0 (g/dL) Final RDW 05/18/2023 11:19:24 12.8 11.5-15.5 (%) Final Platelets 05/18/2023 11:19:24 347 140-400 (K /uL) Final MPV 05/18/2023 11:19:24 9.5 6.6-11.1 ( fL) Final Nucleated erythrocytes/100 leukocytes [Ratio] in Blood by Automated count 05/18/2023 11:19:24 0 <=0 (/100 WBCs) Fi nal Performing Location [facility] [place] [address] [place] [address]
--- OUTSIDE RECORDS SUMMARY | 2023-07-09 00:14 | External Medical Summary ---
Author Name Unknown Address Unknown Organization [id number]:LABORATORY [place] [address] [place] [address] Laboratory Report Ordering Provider Test Date Status TIFFANYJOSE MIGUEL 05/18/2023 11:19:24 Final Observation Date Value Abnormality Reference (Units ) Status Glucose [Moles/volume] in Serum or Plasma --1 hour post 50 g glucose PO 05/18/2023 11:19:24 101 70-129 (mg/dL) Final Performing Location LABORATORY [facility] [place] [address] - [address] [place] [address]
--- OUTSIDE RECORDS SUMMARY | 2023-07-09 00:14 | External Medical Summary | Summary of Care ---
Author Name Unknown Organization [facility] Address [address] [place] [address] Phone [phone] Care Team Providers Care Clinical Product Specialist Name Role Phone Ronaldo Nunez MD Primary Care Provider +1- [phone] Reason for Visit * Reason Comments Return Visit Encounter Details Date Type Department Care Team (Late st Contact Info) Description 05/18/2023 10:30 AM EST Office Visit Gynecology/Obstetric s [facility] [address] [place] [address] Aniya Tomlinson CRNP [address] [place] [address] Normal in third trimester*; Anxiety during ; [...] 50 MCG/ACT Nasal Suspension (Flonase) Administer 1 [place] into nostril in the morning. 0 Active [...] On Prozac. Sees Hemalatha Webber PA-C at [place] for medication management. Sees a therapist monthly. [...] money to get more. Never true 12/28/2022 Alfred Depression Scale Answer Date Recorded Alfred Depression Scale Total 16 12/28/2022 The thought [...] Visit Gynecology/Obstetrics [facility] [address] [facility] [place] [address] Aniya Tomlinson CRNP [address] [place] [address] 02/12/2024 8:00 AM EDT Office Visit [facility] [address] [place] [phone] Ronaldo Nunez MD [address] [place] [address] Health Maintenance Due Date Last [...] complication documented in this encounter Care Teams Clinical Product Specialist Relationship Specialty Start Date End Date Ronaldo Nunez MD [address] [place] [address] PCP - General 02/13/00 documented as of this encounter
--- OUTSIDE RECORDS SUMMARY | 2023-07-09 00:14 | External Medical Summary ---
Author Name Unknown Address Unknown Organization [id number]:[facility] [place] [address] [place] [address] Laboratory Report Ordering Provider Test Date Status JOSE MIGUEL ALLEN 05/18/2023 11:19:24 Final Observation Date Value Abnormality Reference (Units ) Status Treponema pallidum Ab [Presence] in Serum by Immunoassay 05/18/2023 11:19:24 Nonreactive Nonreactive Final No serologic evidence of syp hilis. No additional testing clinicially indicated at this time. Consider repeat testing in 2-4 weeks if acute or primary syphilis is suspected. Performing Location [facility] [place] [address] [place] [address]
--- OUTSIDE RECORDS SUMMARY | 2023-07-09 00:14 | External Medical Summary ---
Author Name Unknown Address Unknown Organization [id number]:[facility] [place] [address] [facility] [place] [address] Laboratory Report Ordering Provider Test Date Status JOSE MIGUEL ALLEN 05/18/2023 11:19:24 Final Observation Date Value Abnormality Reference (Units ) Status SYNC LEUKOCYTES IN BLOOD BY AUTOMATED COUNT 05/18/2023 11:19:24 16.79 Above high normal 4.00-10.80 (K/uL) Final Segs 05/18/2023 11:19:24 81.3 Above high normal 40.0-75.0 (%) Final Lymphs % 05/18/2023 11:19:24 10.8 Below low normal 18.0-42.0 (%) Final Monos 05/18/2023 11:19:24 5.8 1.0-11.0 (%) Final Eosinophils 05/18/2023 11:19:24 0.5 0.0-6.0 (%) Final Basos 05/18/2023 11:19:24 0.4 0.0-2.0 (%) Final Immature Granulocyte, Percent 05/18/2023 11:19:24 1.2 0.0-2.0 (%) Final Absolute Segs 05/18/2023 11:19:24 13.63 Above high normal 1.80-7.70 (K/uL) Final Lymphs, absolute 05/18/2023 11:19:24 1.82 1.00-4.80 (K/ul) Final Monos, Abs 05/18/2023 11:19:24 0.98 0.00-1.10 (K/uL) Final Eos, Abs 05/18/2023 11:19:24 0.09 0.00-0.70 (K/uL) Final Basos, Abs 05/18/2023 11:19:24 0.07 0.00-0.20 (K/uL) Final Immature Granulocytes, Number 05/18/2023 11:19:24 0.20 0.00-0.20 (K/uL) Final Performing Location [facility]ORY [facility] [place] - [address] [facility] [address]
--- OUTSIDE RECORDS SUMMARY | 2023-07-09 00:15 | External Medical Summary | Summary of Care ---
Author Name Unknown Organization [facility] Address [address] [place] [address] Phone [phone] Care Team Providers Care Framing And Hanging Name Role Phone Ronaldo Nunez MD Primary Care Provider +1- [phone] Reason for Visit * Reason Comments Outpatient Testing Encounter Details Date Type Department Care Team (Late st Contact Info) Description 2023 8:40 AM EST Laboratory Laboratory, [facility] [address] [facility] [phone] [facility] [address] [place] [address] Urinary tract infection in mother during second trimester of Allergies Active Allergy Reactions Criticality Noted Date Comments Gold Rash 04/19/2018 Penicillins 12/17/1998 rash Sulfa Antibiotics 12/17/1998 rash documented as of this encounter (statuses as of 2023) Medications Medication Sig Dispensed Refills Start Date [...] 50 MCG/ACT Nasal Suspension (Flonase) Administer 1 [place] into nostril in the morning. 0 Active FLUoxetine HCl 20 MG Oral Tablet (PROzac) Take one tab by mouth every morning 90 Tablet 0 03/23/2023 Active documented as of this encounter (statuses as of 2023) Active Problems Problem Noted Date Diagnosed Date Normal 12/28/2022 Anxiety during 12/28/2022 Depression complicating , antepartum Overview: On Prozac. Sees Hemalatha Webber PA-C at [place] for medication management. Sees a therapist monthly. [...] as of this encounter (statuses as of 2023) Resolved Problems Problem Noted Date Diagnosed Date [...] as of this encounter (statuses as of 2023) Immunizations Name Administration Dates Next Due COVID-19 mRNA, LNP-s, No Pre serve, 2-Dose Series (Pfizer) 05/19/2021,06/02/2020,05/12/2020 HPV Vaccine, 9-Valent 09/04/2018,03/29/2018,10/14 Meningococcal Conjugate Vacc ine (Menactra/Menveo) 03/16/2009 SEASONAL INFLUENZA, PF, 6 M & Above, IM , (FLULAVAL or FLUZONE) 03/08/2023,03/11/2022,03/03/2021 Seasonal Influenza, Quadriva lent, No Preserve, IM 02/01/2020,02/27/2019,02/27/2018,06/13 Seasonal Influenza, Split, I IV3, With Preserve, Inj 02/13/2016 TD, Preservative Free 11/25/2015 Varicella Vaccine (Chicken Pox) 06/13/2007 documented as [...] money to get more. Never true 12/28/2022 Ray[place] Depression Scale Answer Date Recorded Ray[place] Depression Scale Total 16 12/28/2022 The thought [...] Care Team (Late st Contact Info) Description 04/05/2023 10:00 AM EST Imaging Radiology [facility] [address] [facility] [place] [address] [facility] [place] [address] 04/19/2023 3:15 PM EST Office Visit Gynecology/Obstetrics [facility] [address] [facility] [place] [address] Aniya Tomlinson CRNP [address] [place] [address] 02/12/2024 8:00 AM EDT Office Visit [facility] [address] [place] [address] Ronaldo Nunez MD [address] [place] [address] Pending Results Name Type Priority Associated Diagnoses Date /Time CULTURE, URINE, QUANTITATIVE Lab Routine Urinary tract infection in mother during second trimester of 2023 8:34 AM EST Health Maintenance Due Date Last Done Comments COVID-19 Vaccine ( season) 2023 05/19/2021, 06/02/2020, 05/12/2020 Depression Screening 02/08/2023 02/08/2022 HPV/Co-Test 2023 Cervical Cancer Screening 08/23/2024 Pap Smear 08/23/2024 08/23/2021, 04/0 09/2018, 10/23/2015, Additional history exists DTaP,Tdap,and Td Vaccines (8 - Td or Tdap) 11/24/2025 11/25/2015, 02/22/2005, 04/08/1998, Additional history exists Hepatitis B Completed 01/04/1994, [...] as of this encounter Visit Diagnoses Diagnosis Urinary tract infection in mother during second trimester of documented in this encounter Care Teams Framing And Hanging Relationship Specialty Start Date End Date Ronaldo Nunez MD [address] [place] [address] PCP - General 02/13/00 documented as of this encounter
--- OUTSIDE RECORDS SUMMARY | 2023-07-09 00:15 | External Medical Summary | Summary of Care ---
Author Name Unknown Organization [facility] Address [address] [place] [address] Phone [phone] Care Team Providers Care Bar Manager Name Role Phone Ronaldo Nunez MD Primary Care Provider +1- [phone] Encounter Details Date Type Department Care Team (Late st Contact Info) Description 03/15/2023 Telephone Gynecology/Obstetrics [facility] [address] [place] [address] Guerrero Hernandez MD [address] [place] [address] Allergies Active Allergy Reactions Criticality Noted Date Comments Gold Rash 04/19/2018 Penicillins 12/17/1998 rash Sulfa Antibiotics 12/17/1998 rash documented as of this encounter (statuses as of 03/15/2023) Medications Medication Sig Dispensed Refills Start Date [...] MCG/ACT Nasal Suspension (Flonase) Administer 1 [place] into nostril in the morning. 0 Active documented as of this encounter (statuses as of 03/15/2023) Active Problems Problem Noted Date Diagnosed Date Normal 12/28/2022 Anxiety during 12/28/2022 Depression complicating , antepartum Overview: On Prozac. Sees Hemalatha Webber PA-C at [place] for medication management. Sees a therapist monthly. [...] as of this encounter (statuses as of 03/15/2023) Resolved Problems Problem Noted Date Diagnosed Date [...] as of this encounter (statuses as of 03/15/2023) Immunizations Name Administration Dates Next Due COVID-19 [...] money to get more. Never true 12/28/2022 [place] Depression Scale Answer Date Recorded [place] Depression Scale Total 16 12/28/2022 The thought [...] encounter Miscellaneous Notes * Telephone Encounter - Bruss, Lauren, ASSOCIATE PROFESSOR OF ARCHAEOLOGY - 03/15/2023 12:40 PM EDT Pt calling in stating she was seen in ER on 03/10/23. ER report stating UTI, hydronephrosis of rt kidney. Pt states IV abx in ER and sent home with PO Keflex. Pt asking if she needs see sooner for next REECE. Advised pt that next visit will allow her time to complete treatment. Pt to call sooner with worsening or new symptoms. Pt verbalized understanding. documented in this encounter Plan of Treatment Upcoming Encounters Date Type Department Care Team (Late st Contact Info) Description 03/22/2023 1:30 PM EST Imaging Radiology [facility] 2nd [facility] [address] [facility] [place] [address] 03/22/2023 3:00 PM EST Office Visit Gynecology/Obstetrics [facility] [address] [facility] [place] [address] [facility]inson [facility] [place] [address] 02/12/2024 8:00 AM EDT Office Visit [facility] [address] [place] [address] Ronaldo Nunez MD [address] [place] [address] Health Maintenance Due Date Last Done Comments COVID-19 Vaccine ( season) 2023 05/19/2021, 06/02/2020, 05/12/2020 Depression Screening 02/08/2023 02/08/2022 Pap Smear 08/23/2024 08/23/2021, 04/0 09/2018, 10/23/2015, [...] filedocumented as of this encounter Care Teams Bar Manager Relationship Specialty Start Date End Date Ronaldo Nunez MD [address] [place] [address] PCP - General 02/13/00 documented as of this encounter
--- OUTSIDE RECORDS SUMMARY | 2023-07-09 00:15 | External Medical Summary ---
Author Name Unknown Address Unknown Organization K01:LABORATORY [facility] - [address] [facility] Laboratory Report Ordering Provider Test Date Status JOSE MIGUEL ALLEN 2023 08:34:42 Final Observation Date Value Abnormality Reference (Units) Status Bacteria identified in Specimen by Culture 2023 08:34:42 No significant growth Final Test: Culture, Urine, Quant itative
Specimen Source: Urine, Clean Catch
Specimen Type: Urine
Specimen Date: 2023 8:34 AM
Result Date: 03/28/2023 8:29 AM
Result Status: Final result
Resulting Lab: LABORATORY [facility]
[address]
[place] [address]

CULTURE

No significant growth

null Performing Location LABORATORY [facility] - [address] [facility] [address]
--- OUTSIDE RECORDS SUMMARY | 2023-07-09 00:15 | External Medical Summary ---
Author Name Unknown Address Unknown Organization : Laboratory Report Ordering Provider Test Date Status JOSE MIGUEL ALLEN 01/25/2023 11:09:22 Final Observation Date Value Abnormality Reference (Units ) Status NUMBER OF FETUSES? 01/25/2023 11:09:22 1 Final ADVANCED MATERNAL AGE? 01/25/2023 11:09:22 NO Final ABNORMAL RUTHIE? 01/25/2023 11:09:22 NO Final ABNORMAL US? 01/25/2023 11:09:22 NOT GIVEN Final PERSONAL/FAM HISTORY? 01/25/2023 11:09:22 NOT GIVEN Final INTERPRETATION 01/25/2023 11:09:22 SEE BELOW Final This specimen showed an expe cted representation of
chromosome 21, 18, and 13 material. Results were
not analyzed or reported for microdeletions. See
'Limitations' below. TRISOMY 21 (T21) 01/25/2023 11:09:22 Negative Final TRISOMY 18 (T18) 01/25/2023 11:09:22 Negative Final TRISOMY 13 (T13) 01/25/2023 11:09:22 Negative Final Y CHROMOSOME 01/25/2023 11:09:22 Detected Final Y CHR. INTERPRETATION 01/25/2023 11:09:22 SEE BELOW Final Consistent with a male fetus . SEX CHROMOSOME 01/25/2023 11:09:22 No aneuploidy Final SEX CHROMOSOME INTERP 01/25/2023 11:09:22 SEE BELOW Final No apparent abnormality was detected. See
'Limitations' below. MICRODELETION 01/25/2023 11:09:22 Opted Out Final MICRODELETION INTERP 01/25/2023 11:09:22 SEE BELOW Final Results were not analyzed or reported for
microdeletions. GESTATIONAL AGE (IN WEEKS) 01/25/2023 11:09:22 12 Final GESTATIONAL AGE (IN DAYS) 01/25/2023 11:09:22 6 Final FRACTION 01/25/2023 11:09:22 10.40% Final LABORATORY COMMENTS 01/25/2023 11:09:22 SEE BELOW Final Laboratory testing supervise d and results
monitored by Pham Elizabeth, Ph.D., [facility],
[facility]. LIMITATIONS 01/25/2023 11:09:22 SEE BELOW Final QNatal(R) Advanced is a cell -free DNA test that
screens for increased risk of certain
chromosomal abnormalities that may cause
defects, including Trisomy 21 (Down syndrome),
Trisomy 18, Trisomy 13, and certain sex chromosome
abnormalities (i.e., 45,X, 47,XXY, 47,XXX, and
47,XYY), as well as sex. In addition, if
selected as an option, QNatal(R) Advanced can
screen for certain microdeletions (i.e., 22q, 5p,
1p36, 15q, 11q, 8q, and 4p) that may cause
defects. This test does not assess the risk of
abnormalities such as neural tube defects or
ventral wall defects and should not be considered
in isolation from other clinical findings and
laboratory test results.
QNatal(R) Advanced has been validated in girard
pregnancies for the trisomies and sex chromosome
abnormalities listed above, as well as for
microdeletions, and for the determination of
sex. Sex chromosome aneuploidy analysis is only
performed in girard pregnancies. The test has
also been validated in twin pregnancies for the
trisomies listed above and for microdeletions, but
not for the sex chromosome abnormalities due to
limited data. The test has not been validated in
higher order pregnancies (more than two) because
limited data is available.
Microdeletion screening is limited to the
specified microdeletion regions (see
'Methodology'). The Y chromosome is analyzed for
the determination of sex. The sensitivity
and specificity of sex determination
analysis may be less than that of the Trisomy 21,
18, and 13 analysis and this determination can be
confounded by vanishing twin syndrome in
pregnancies that were originally multiple
gestation pregnancies. It should be noted that
QNatal(R) Advanced is a quantitative analysis of
maternal and placental cfDNA. As a result, the
accuracy of the screening test results may be
affected by the presence of chromosome
abnormalities or microdeletions that are maternal
or confined placental in origin. False positive
findings involving the examined chromosomes and
microdeletion regions may be due to maternal,
placental, or mosaicism, by vanishing twin
syndrome, or other unexplained causes. SPECIFICATIONS 01/25/2023 11:09:22 SEE BELOW Final Sensitivity Specificity
T21 >99.9% >99.9%
T18 >99.9% >99.9%
T13 >99.9% >99.9%
Accuracy
Y >99.9%
Performance of the QNatal Advanced
laboratory-developed test (LDT) has been
determined based on internal analytical
assessment. METHODOLOGY 01/25/2023 11:09:22 SEE BELOW Final Circulating cell-free (cf) D NA was isolated from
plasma followed by detection on a massively
parallel sequencing platform. Bioinformatic
analysis was performed to determine the
representation of chromosomes 21, 18, 13, X and Y
in circulating cell-free DNA. The representation
of sequences from the critical regions involved in
1p36 microdeletion syndrome (1p36),
Crump-Hirschhorn syndrome (4p), Cri-du-chat
syndrome (5p), Anjana-Giedion syndrome (8p),
Devaughn syndrome (11q), Prader Willi
syndrome/Angelman syndrome (15q), and DiGeorge
syndrome (22q) is evaluated for the detection of
microdeletions if requested. This test was
developed, and its performance characteristics
have been determined by [employer]
[facility]. It has not been
cleared or approved by the U.S. Food and Drug
Administration. Performance characteristics refer
to the analytical performance of the test. This
test is performed pursuant to a license agreement
with [employer].
This test was developed and its analytical
performance characteristics have been determined
by [employer] [facility]. It has not been cleared or approved by
FDA. This assay has been validated pursuant to the
CLIA regulations and is used for clinical
purposes.
Test performed by [employer] [facility]
[address] [facility] [place] [address]

Pump Tender: Alessandra Garcia MD,PHD,GABRIEL
Test Reported by [facility],
[employer] [facility],
[address] [place], [place]
Yang Currie M.D., Ph.D., Director of Laboratories
, CLIA [id number] Performing Location
--- OUTSIDE RECORDS SUMMARY | 2023-07-09 00:15 | External Medical Summary | Summary of Care ---
Author Name Unknown Organization [facility] Address [address] [place] [address] Phone [phone] Care Team Providers Care Manager Financial Name Role Phone Ronaldo Nunez MD Primary Care Provider [phone]- [phone] Reason for Visit * Reason Comments Outpatient Testing Encounter Details Date Type Department Care Team Description 01/25/2023 Laboratory Laboratory, [facility] [address] [place] [address] GalvanCharley gonsales [facility] [address] [place] [address] Normal in first trimester Allergies Active Allergy Reactions Severity Noted Date Comments Gold Rash 04/19/2018 Penicillins 12/17/1998 rash Sulfa Antibiotics 12/17/1998 rash documented as of this encounter (statuses as of 01/25/2023) Medications Medication Sig Dispensed Refills Start Date End Date Status cetirizine (ZYRTEC) 10 MG Tablet Take 1 Tab by mouth daily as needed (itching, rash). 0 03/16/2018 Active 28-0.8 MG Oral Tablet Take by mouth. 0 Active FLUoxetine HCl 20 MG Oral Tablet (PROzac) take one tab by mouth every morning 30 Tablet 0 01/09/2023 Active documented as of this encounter (statuses as of 01/25/2023) Active Problems Problem Noted Date Normal 12/28/2022 Anxiety during 12/28/2022 Depression complicating , antep artum 12/28/2022 Overview: On Prozac. Sees Hemalatha Webber PA-C at [place] for medication management. Sees a therapist monthly. Obesity in , antepartum 023 Overview: Class 1, early GTT normal Major depressive disorder, recurrent, mo derate 01/12/2021 Depression with anxiety 01/21/2019 Panic disorder 10/14/2015 Obesity, Class I, BMI 30.0-34.9 (see act ual BMI) 06/16/2011 ACNE VULGARIS 05/10/2006 Allergic rhinitis 04/24/2000 Estimated Date of Delivery Comme nts Yes 08/03/2023 Based on last me nstrual period of 10/27/2022 documented as of this encounter (statuses as of 01/25/2023) Resolved Problems Problem Noted Date Resolved Date Pain in limb 08/18/2011 09/26/2014 Injury of hand 08/18/2011 09/26/2014 Sprain of wrist 08/18/2011 09/26/2014 Otalgia 05/10/2006 09/26/2014 ACUTE SWIMMERS' EAR, RIGHT 05/10/200609/26 Epistaxis 05/10/2006 01/03/2018 ADVANCE DIRECTIVE INFORMATION 02/22/2005 Overview: Not applicable (under age of 18) SINUS ARRHYTHMIA 01/21/2002 03/02/2018 Undiagnosed cardiac murmurs 01/21/2002 02/0 06/2011 OTITIS MEDIA, RECURRENT, NOW WITH PE TUBES 04/2409/26/2014 Routine child health exam 04/24/20002014 Otitis media 09/26/2014 Depression 03/08/2019 documented as of this encounter (statuses as of 01/25/2023) Immunizations Name Administration Dates Next Due COVID-19 mRNA, LNP-s, No Pre serve, 2-Dose Series (I-Pulse) 05/19/2021,06/02/2020,05/12/2020 HPV Vaccine, 9-Valent 09/04/2018,03/29/2018,10/14 Meningococcal Conjugate Vacc ine (Menactra/Menveo) 03/16/2009 Seasonal Influenza, PF, 6 mo ns & Above, IM , (Flulaval) 03/11/2022,03/03/2021 Seasonal Influenza, Quadriva lent, No Preserve, IM 02/01/2020,02/27/2019,02/27/2018,06/13 Seasonal Influenza, Split, I IV3, With Preserve, Inj 02/13/2016 TD, Preservative Free 11/25/2015 Varicella Vaccine (Chicken Pox) 06/13/2007 documented as of this encounter Social History Tobacco Use Types Packs/Day Years Used Date Smoking Tobacco: Never Smokeless Tobacco: Never Comments:non smoking househo ld Alcohol Use Standard Drinks/Week Comments Not Currently 0 (1 standard drink = 0.6 oz pur e alcohol) once a month if that Food Insecurity Answer Date Recorded Within the past 12 months, y ou worried that your food would run out before you got money to buy more. Never true 12/28/2022 Within the past 12 months, t he food you bought just didn't last and you didn't have money to get more. Never true 12/28/2022 Estimated Date of Delivery Comme nts Yes 08/03/2023 Based on last me nstrual period of 10/27/2022 Sex Assigned at Date Recorded Female 12/05/2018 3:55 PM E DT Job Start Date Occupation Industry Not on file Not on file Not on file documented as of this encounter Plan of Treatment Upcoming Encounters Date Type Specialty Care Team Description 02/09/2023 Office Visit Family Medicine Ronaldo Nunez MD [address] [facility] [place] [phone] 02/22/2023 Office Visit Gynecology Obstetrics Liza [place] CRNP [address] [facility] [place] [address] 09/18/2023 Office Visit Gynecology Obstetrics Liza [place] CRNP [address] [place] [address] Pending Results Name Type Priority Associated Diagnoses Date /Time QNATAL ADVANCED (QUEST) Lab Routine Normal in first trimester 01/25/2023 11:09 AM EDT Health Maintenance Due Date Last Done Comments COVID-19 Vaccine (4 - Pfizer series) 07/14/2021 05/19/2021, 06/02/2020, 05/12/2020 Influenza Vaccine (FLU shot) (#1) 2023 03/11/2022, 03/03/2021, 02/01/2020, Additional history exists Depression Screening 02/08/2023 02/08/2022 Pap Smear 08/23/2024 08/23/2021, 09/2018, 10/23/2015, Additional [...] the intention of not completing the topic Hepatitis C Screening Completed 12/28/2022 , 12/28/2022, 12/28/2022, Additional history exists Pneumococcal Vaccine: Pediatrics (0 to 5 Years) and At-Risk Patients (6 to 64 Years) Aged Out No longer eligible based on patient's age to complete this topic documented as of this encounter Medical Devices Not on filedocumented as of this encounter Visit Diagnoses Diagnosis Normal in first trimester documented in this encounter Care Teams Manager Financial Relationship Specialty Start Date End Date Ronaldo Nunez MD [address] [facility] [place] [address] PCP - General 02/13/00 documented as of this encounter
--- OUTSIDE RECORDS SUMMARY | 2023-07-09 00:15 | External Medical Summary | Summary of Care ---
Author Name Unknown Organization [facility] Address [address] [place] [address] Phone [phone] Care Team Providers Care Neighborhood Conservation Officer Name Role Phone Ronaldo Nunez MD Primary Care Provider [phone]- [phone] Reason for Visit * Reason Comments Return Visit Encounter Details Date Type Department Care Team (Late st Contact Info) Description 04/19/2023 3:15 PM EST Office Visit Gynecology/Obstetric s Gala Galvan [address] [place] [address] Anyia Tomlinson CRNP [address] [place] [address] Normal in second trimester*; Anxiety during ; Depression complicating , antepartum; Obesity in , antepartum Allergies Active Allergy Reactions Criticality Noted Date Comments Gold Rash 04/19/2018 Penicillins 12/17/1998 rash Sulfa Antibiotics 12/17/1998 rash documented as of this encounter (statuses as of 04/19/2023) Medications Medication Sig Dispensed Refills Start Date [...] 50 MCG/ACT Nasal Suspension (Flonase) Administer 1 [place] into nostril in the morning. 0 Active FLUoxetine HCl 20 MG Oral Tablet (PROzac) Take one tab by mouth every morning 90 Tablet 0 03/23/2023 Active documented as of this encounter (statuses as of 04/19/2023) Active Problems Problem Noted Date Diagnosed Date Normal 12/28/2022 Anxiety during 12/28/2022 Depression complicating , antepartum Overview: On Prozac. Sees Hemalatha Webber PA-C at [place] for medication management. Sees a therapist monthly. [...] as of this encounter (statuses as of 04/19/2023) Resolved Problems Problem Noted Date Diagnosed Date [...] as of this encounter (statuses as of 04/19/2023) Immunizations Name Administration Dates Next Due COVID-19 [...] money to get more. Never true 12/28/2022 Hamilton Depression Scale Answer Date Recorded Hamilton Depression Scale Total 16 12/28/2022 The thought [...] Sign Reading Time Taken Comments Blood Pressure 126/78 04/19/2023 3:02 PM EST Pulse - - Temperature - - Respiratory Rate - - Oxygen Saturation - - Inhaled Oxygen Concentration - - Weight 107 kg (235 lb 12.8 oz) 04/19/2023 3:02 P M EST Height 167 cm (5' 5.75") 04/19/2023 3:02 PM EST Body Mass Index 38.35 04/19/2023 3:02 PM EST documented in this encounter Progress Notes * Aniya Tomlinson CRNP - 04/19/2023 3:28 PM EST 24w6d C/o BLE edema. Has compression stockings, elevating feet. Does improve over night. No other concerns. Baby is active. No bleeding or LOF. Glucola with next visit. WENDY Kohli * Briseida Lerma LPN - 04/19/2023 3:06 PM EST 24w6d Pt having BL ankle/foot swelling, more in left foot. Resolved with compression stockings and elevation. 28wk packet provided. documented in this encounter Plan of Treatment Upcoming Encounters Date Type Department Care Team (Late st Contact Info) Description 05/18/2023 10:20 AM EST [facility] [address] [facility] [place] [id number] GalvanCharley gonsales [address] [facility] [place] [address] 05/18/2023 10:30 AM EST Office Visit Gynecology/Obstetrics Gala Galvan [address] [place] [address] Aniya Tomlinson CRNP [address] [place] [address] 02/12/2024 8:00 AM EDT Office Visit [facility] [address] [place] [phone] Ronaldo Nunez MD [address] [place] [address] Scheduled Orders Name Type Priority Associated Diagnoses Orde r Schedule 50-G GESTATIONAL GLUCOSE, 1 HOUR Lab Routine Normal in second trimester Expected: 05/20/2023 (Approximate), Expires: 04/19/2024 CBC WITH WBC DIFFERENTIAL AND ANEMIA REFLEX WORKUP Lab Routine Normal in second trimester Expected: 05/20/2023 (Approximate), Expires: 04/19/2024 SYPHILIS ANTIBODY SCREEN WITH REFLEX TO RPR Lab Routine Normal in second trimester Expected: 05/20/2023 (Approximate), Expires: 04/19/2024 Health Maintenance Due Date Last Done Comments [...] encounter Visit Diagnoses Diagnosis Normal in second trimester- Primary Anxiety during Depression complicating , antepartum Mental disorders of mother, antepartum Obesity in , antepartum Obesity complicating , childbirth, or the puerperium, antepartum condition or complication documented in this encounter Care Teams Neighborhood Conservation Officer Relationship Specialty Start Date End Date Ronaldo Nunez MD [address] [place] [address] PCP - General 02/13/00 documented as of this encounter
--- OUTSIDE RECORDS SUMMARY | 2023-07-09 00:15 | External Medical Summary | Summary of Care ---
Author Name Unknown Organization [facility] Address [address] [place] [address] Phone [phone] Care Team Providers Care Clinical Laboratory Assistant Name Role Phone Ronaldo Nunez MD Primary Care Provider +1- [phone] Reason for Visit * Reason Comments Return Visit Encounter Details Date Type Department Care Team Description 02/22/2023 Office Visit Gynecology/Obstetrics [facility] [address] [place] [address] Liza [place] CRNP [address] [place] [address] Normal in second trimester*; Anxiety during ; Depression complicating , antepartum; Obesity in , antepartum Allergies Active Allergy Reactions Severity Noted Date Comments Gold Rash 04/19/2018 Penicillins 12/17/1998 rash Sulfa Antibiotics 12/17/1998 rash documented as of this encounter (statuses as of 02/22/2023) Medications Medication Sig Dispensed Refills Start Date [...] 50 MCG/ACT Nasal Suspension (Flonase) Administer 1 [place] into nostril in the morning. 0 Active documented as of this encounter (statuses as of 02/22/2023) Active Problems Problem Noted Date Normal 12/28/2022 Anxiety during 12/28/2022 Depression complicating , antep artum 12/28/2022 Overview: On Prozac. Sees Hemalatha Webber PA-C at [place] for medication management. Sees a therapist monthly. [...] as of this encounter (statuses as of 02/22/2023) Resolved Problems Problem Noted Date Resolved Date [...] as of this encounter (statuses as of 02/22/2023) Immunizations Name Administration Dates Next Due COVID-19 mRNA, LNP-s, No Pre serve, 2-Dose Series (Pfizer) 05/19/2021,06/02/2020,05/12/2020 HPV Vaccine, 9-Valent 09/04/2018,03/29/2018,10/14 Meningococcal Conjugate Vacc ine (Menactra/Menveo) 03/16/2009 SEASONAL INFLUENZA, PF, 6 M & Above, IM , (FLULAVAL or FLUZONE) 03/11/2022,03/03/2021 Seasonal Influenza, Quadriva lent, No Preserve, [...] Sign Reading Time Taken Comments Blood Pressure 102/64 02/22/2023 1:49 PM EDT Pulse - - Temperature - - Respiratory Rate - - Oxygen Saturation - - Inhaled Oxygen Concentration - - Weight 99.8 kg (220 lb) 02/22/2023 1:49 PM EDT Height - - Body Mass Index 35.78 02/09/2023 7:50 AM EDT documented in this encounter Patient Instructions * Patient Instructions* WENDY Velasco - 02/22/2023 1:57 PM EDT To prevent migraines, take daily ([id number]): - 400 mg magnesium - 200 mg Co-Q-10 - 400 mg riboflavin (vitamin B2) documented in this encounter Progress Notes * WENDY Velasco - 02/22/2023 1:53 PM EDT 16w6d No cramping/bleeding. Not feeling movement yet. Discussed MSAFP and role in screening for ONTD. Will think about it, advised to complete before 23 weeks if desired. Having a boy. Anatomy u/s with next visit. WENDY Puri * Lauren Pedersen LPN - 02/22/2023 1:50 PM EDT 16w6d Denies vaginal bleeding/rom Absent movement Going to think about MSAFP documented in this encounter Plan of Treatment Upcoming Encounters Date Type Specialty Care Team Description 03/22/2023 Imaging Radiology 03/22/2023 Office Visit Gynecology Obstetrics Aniya Tomlinson CRNP [address] [place] [phone] 02/12/2024 Office Visit Family Medicine [facility]onal[facility] [address] [facility] [address] Scheduled Orders Name Type Priority Associated Diagnoses Orde r Schedule US PREG SINGLE/1ST GEST, 14 WEEKS OR LATER Medical Imaging Routine Normal in second trimester Expected: 03/08/2023 (Approximate), Expires: 03/25/2024 Health Maintenance Due Date Last Done Comments COVID-19 Vaccine ( season) 2023 05/19/2021, 06/02/2020, 05/12/2020 Influenza Vaccine (FLU shot) [...] the intention of not completing the topic Pneumococcal Vaccine: Pediatrics (0 to 5 Years) [...] documented in this encounter Care Teams Clinical Laboratory Assistant Relationship Specialty Start Date End Date Ronaldo Nunez MD [address] [place] [address] PCP - General 02/13/00 documented as of this encounter
--- OUTSIDE RECORDS SUMMARY | 2023-07-09 00:15 | External Medical Summary | Summary of Care ---
Author Name Unknown Organization [facility] Address [address] [place] [address] Phone [phone] Care Team Providers Care Core Baker Name Role Phone Ronaldo Nunez MD Primary Care Provider +1- [phone] Reason for Visit * Reason Comments Return Visit Encounter Details Date Type Department Care Team Description 01/25/2023 [facility] [address] [place] [address] Aniya Tomlinson CRNP [address] [place] [address] Normal in first trimester*; Anxiety during ; Depression complicating , [...] every morning 30 Tablet 0 01/09/2023 Active FLUoxetine HCl 10 MG Oral Tablet (PROzac) TAKE ONE TABLET BY MOUTH EVERY MORNING 90 Tablet 0 09/01/2022 01/25/2023 Discontinued (Medication List Clean Up) documented as of this encounter (statuses as of 01/25/2023) Active Problems Problem Noted Date Normal 12/28/2022 Anxiety during 12/28/2022 Depression complicating , antep artum 12/28/2022 Overview: On Prozac. Sees Hemalatha Webber PA-C at [place] for medication management. Sees a therapist monthly. [...] Sign Reading Time Taken Comments Blood Pressure 120/68 01/25/2023 10:35 AM EDT Pulse - - Temperature - - Respiratory Rate - - Oxygen Saturation - - Inhaled Oxygen Concentration - - Weight 97.5 kg (215 lb) 01/25/2023 10:35 AM EDT Height 165.7 cm (5' 5.25") 01/25/2023 10:35 AM E DT Body Mass Index 35.5 01/25/2023 10:35 AM EDT documented in this encounter Progress Notes * WENDY Kohli - 01/25/2023 10:59 AM EDT 12w6d Having some mid back pain. No other concerns. Nausea improving. No bleeding. Qnatal ordered. WENDY Kohli * Briseida Lerma LPN - 01/25/2023 10:40 AM EDT 12w6d Pt denies any concerns, works for [employer] will get flu shot later in the season. documented in this encounter Plan of Treatment Upcoming Encounters Date Type Specialty Care Team Description 01/25/2023 Laboratory Laboratory [facility] [address] [place] [address] Normal in first trimester 02/09/2023 Office Visit Family Medicine Ronaldo Nunez MD [address] [place] [address] 02/22/2023 Office Visit Gynecology Obstetrics BackLiza amado CRNP [address] [place] [address] 09/18/2023 Office Visit Gynecology Obstetrics Liza [place] CRNP [address] [address] Pending Results Name Type Priority Associated Diagnoses Date /Time QNATAL ADVANCED (QUEST) Lab Routine Normal in first trimester 01/25/2023 11:09 AM EDT Scheduled Orders Name Type Priority Associated Diagnoses Orde r Schedule QNATAL ADVANCED (QUEST) Lab Routine Normal in first trimester Expected: 01/25/2023 (Approximate), Expires: 01/26/2024 Health Maintenance Due Date Last Done Comments [...] encounter Visit Diagnoses Diagnosis Normal in first trimester- Primary Anxiety during Depression complicating , antepartum Mental disorders of mother, antepartum Obesity in , antepartum Obesity complicating , childbirth, or the puerperium, antepartum condition or complication Normal in first trimester documented in this encounter Care Teams Core Baker Relationship Specialty Start Date End Date Ronaldo Nunez MD [address], [place] [id number] PCP - General 02/13/00 documented as of this encounter
--- OUTSIDE RECORDS SUMMARY | 2023-07-09 00:15 | External Medical Summary | Summary of Care ---
Author Name Unknown Organization [facility] Address [address] [place] [address] Phone [phone] Care Team Providers Care Pearl Glue Drier Name Role Phone Ronaldo Nunez MD Primary Care Provider [phone]- [phone] Reason for Visit * Reason Onset Date Comments Medication Administration 03/08/2023 Flu an d/or Pneumo Inj Encounter Details Date Type Department Care Team (Late st Contact Info) Description 03/08/2023 9:40 AM EDT Immunization Ancillary [facility] [address] [place] [address] Sp, [facility] [address] [place] [address] Need for prophylactic vaccination and inoculation against influenza* Allergies Active Allergy Reactions Criticality Noted Date Comments Gold Rash 04/19/2018 Penicillins 12/17/1998 rash Sulfa Antibiotics 12/17/1998 rash documented as of this encounter (statuses as of 03/08/2023) Medications Medication Sig Dispensed Refills Start Date [...] 50 MCG/ACT Nasal Suspension (Flonase) Administer 1 [place] into nostril in the morning. 0 Active documented as of this encounter (statuses as of 03/08/2023) Active Problems Problem Noted Date Diagnosed Date Normal 12/28/2022 Anxiety during 12/28/2022 Depression complicating , antepartum Overview: On Prozac. Sees Hemalatha Webber PA-C at [place] for medication management. Sees a therapist monthly. [...] as of this encounter (statuses as of 03/08/2023) Resolved Problems Problem Noted Date Diagnosed Date [...] as of this encounter (statuses as of 03/08/2023) Immunizations Name Administration Dates Next Due COVID-19 [...] money to get more. Never true 12/28/2022 [place] Depression Scale Answer Date Recorded [place] Depression Scale Total 16 12/28/2022 The thought [...] on file documented as of this encounter Progress Notes * Mona Cook LPN - 03/08/2023 9:28 AM EDT PRE - ADMINISTRATION DOCUMENTATION Are you experiencing any cold symptoms or fever? No Have you had Guillain-Eugene Syndrome (an illness that causes paralysis) within the last 6 weeks? No Have you had the flu shot in the past? YES Have you ever had a reaction to the flu shot? No Mona Cook LPN, 03/08/2023 9:28 AM Immunization Administration Documentation Time Out Procedure Performed: Yes Patient Identified (Ask Name/Date of ): Yes Does the patient have a fever greater than 101 degrees today? No Patient allergic to latex? No VFC Stock: No Immunization(s) verified: Yes, Immunization Name: Flu, VIS Sheet(s) given: Yes Verified Side and Site: Yes Verified Shot(s) with Parent(s)/Patient: Yes documented in this encounter Plan of Treatment Upcoming Encounters Date Type Department Care Team (Late st Contact Info) Description 03/22/2023 1:30 PM EST Imaging Radiology [facility] 2nd [facility] [address] [facility] [place] [address] 03/22/2023 3:00 PM EST Office Visit Gynecology/Obstetrics [facility] [address] [facility] [place] [address] Aniya Tomlinson CRNP [address] [facility] [place] [address] 02/12/2024 8:00 AM EDT Office Visit [facility] [address] [facility] [place] [id number] Ronaldo Nunez MD [address] [place] [address] Health Maintenance Due Date Last Done Comments COVID-19 Vaccine ( season) 2023 05/19/2021, 06/02/2020, 05/12/2020 Depression Screening 02/08/2023 02/08/2022 Pap Smear 08/23/2024 08/23/2021, 040 09/2018, 10/23/2015, Additional history exists DTaP,Tdap,and Td [...] as of this encounter Visit Diagnoses Diagnosis Need for prophylactic vaccination and inoculation against influenza- Primary documented in this encounter Care Teams Pearl Glue Drier Relationship Specialty Start Date End Date Ronaldo Nunez MD [address] [place] [address] PCP - General 02/13/00 documented as of this encounter
--- OUTSIDE RECORDS SUMMARY | 2023-07-09 00:15 | External Medical Summary | Summary of Care ---
Author Name Unknown Organization [facility] Address [address] [place] [address] Phone [phone] Care Team Providers Care Senior System Operator Name Role Phone Ronaldo Nunez MD Primary Care Provider [phone]- [phone] Reason for Visit * Reason Comments Return Visit Encounter Details Date Type Department Care Team (Late st Contact Info) Description 03/22/2023 3:00 PM EST Office Visit Gynecology/Obstetric s [facility] [address] [place] [address] Aniya Tomlinson CRNP [address] [place] [address] Normal in second trimester*; Anxiety during ; Depression complicating , antepartum; Obesity in , antepartum; Encounter for follow-up ultrasound of anatomy; Urinary tract infection in mother during second trimester of Allergies Active Allergy Reactions Criticality Noted Date Comments Gold Rash 04/19/2018 Penicillins 12/17/1998 rash Sulfa Antibiotics 12/17/1998 rash documented as of this encounter (statuses as of 03/22/2023) Medications Medication Sig Dispensed Refills Start Date [...] 50 MCG/ACT Nasal Suspension (Flonase) Administer 1 [place] into nostril in the morning. 0 Active documented as of this encounter (statuses as of 03/22/2023) Active Problems Problem Noted Date Diagnosed Date Normal 12/28/2022 Anxiety during 12/28/2022 Depression complicating , antepartum Overview: On Prozac. Sees Hemalatha Webber PA-C at [place] for medication management. Sees a therapist monthly. [...] as of this encounter (statuses as of 03/22/2023) Resolved Problems Problem Noted Date Diagnosed Date [...] as of this encounter (statuses as of 03/22/2023) Immunizations Name Administration Dates Next Due COVID-19 [...] money to get more. Never true 12/28/2022 [place] Depression Scale Answer Date Recorded [place] Depression Scale Total 16 12/28/2022 The thought [...] Sign Reading Time Taken Comments Blood Pressure 102/70 03/22/2023 2:39 PM EST Pulse - - Temperature - - Respiratory Rate - - Oxygen Saturation - - Inhaled Oxygen Concentration - - Weight 103.3 kg (227 lb 12.8 oz) 03/22/2023 2:39 PM EST Height 167 cm (5' 5.75") 03/22/2023 2:39 PM EST Body Mass Index 37.05 03/22/2023 2:39 PM EST documented in this encounter Progress Notes * Aniya Tomlinson CRNP - 03/22/2023 3:07 PM EST 20w6d Was in ED last week, dx with UTI. Last dose of antibiotic was yesterday. Will have pt repeat urine culture on Monday to confirm infection has cleared. No other concerns. Feeling a bit of FM. No bleeding. Anatomy u/s today, needs additional views in 2 weeks. +cardiac activity on u/s. WENDY Kohli * Briseida Lerma LPN - 03/22/2023 2:43 PM EST 20w6d Pt denies any concerns. documented in this encounter Plan of Treatment Upcoming Encounters Date Type Department Care Team (Late st Contact Info) Description 04/05/2023 10:00 AM EST Imaging Radiology [facility] 2nd [facility] [address] [place] [address] 04/19/2023 3:15 PM EST Office Visit Gynecology/Obstetrics [facility] [address] [place] [address] Aniya Tomlinson CRNP [address] [facility] [place] [address] 02/12/2024 8:00 AM EDT Office Visit [facility] [address] [facility] [place] [id number] Ronaldo Nunez MD [address] [place] [address] Scheduled Orders Name Type Priority Associated Diagnoses Orde r Schedule US PREG LIMITED 1 OR MORE FETUSES Medical Imaging Routine Encounter for follow-up ultrasound of anatomy Expected: 04/05/2023, Expires: 04/21/2024 CULTURE, URINE, QUANTITATIVE Lab Routine Urinary tract infection in mother during second trimester of Expected: 03/23/2023 (Approximate), Expires: 03/22/2024 Health Maintenance Due Date Last Done Comments [...] or the puerperium, antepartum condition or complication Encounter for follow-up ultrasound of anatomy Urinary tract infection in mother during second trimester of documented in this encounter Care Teams Senior System Operator Relationship Specialty Start Date End Date Ronaldo Nunez MD [address] [place] [address] PCP - General 02/13/00 documented as of this encounter
--- OUTSIDE RECORDS SUMMARY | 2023-07-09 00:15 | External Medical Summary | Summary of Care ---
Author Name Unknown Organization [facility] Address [address] [place] [address] Phone [phone] Care Team Providers Care Chemistry Specialist Name Role Phone Ronaldo Nunez MD Primary Care Provider [phone]- [phone] Reason for Visit * Reason Comments Physical-Exam Encounter Details Date Type Department Care Team Description 02/09/2023 Office Visit [facility] [address] [place] [address] Ronaldo Nunez MD [address] [place] [address] Routine medical exam*; Major depressive disorder, recurrent, moderate (HCC); Normal in first trimester Allergies Active Allergy Reactions Severity Noted Date Comments Gold Rash 04/19/2018 Penicillins 12/17/1998 rash Sulfa Antibiotics 12/17/1998 rash documented as of this encounter (statuses as of 02/09/2023) Medications Medication Sig Dispensed Refills Start Date End Date Status cetirizine (ZYRTEC) 10 MG Tablet Take 1 Tab by mouth daily as needed (itching, rash). 0 03/16/2018 Active 28-0.8 MG Oral Tablet Take by mouth. 0 Active FLUoxetine HCl 20 MG Oral Tablet (PROzac) take 1 tablet by mouth every morning 30 Tablet 2 02/06/2023 Active documented as of this encounter (statuses as of 02/09/2023) Active Problems Problem Noted Date Normal 12/28/2022 Anxiety during 12/28/2022 Depression complicating , antep artum 12/28/2022 Overview: On Prozac. Sees Hemalatha Webber PA-C at [place] for medication management. Sees a therapist monthly. [...] as of this encounter (statuses as of 02/09/2023) Resolved Problems Problem Noted Date Resolved Date [...] as of this encounter (statuses as of 02/09/2023) Immunizations Name Administration Dates Next Due COVID-19 [...] Passive Smoke Exposure: Never Smokeless Tobacco: Never Tobacco Cessation:Counseling Given: Not Answered Comments:non smoking household Alcohol Use Standard Drinks/Week Comments Not Currently [...] Sign Reading Time Taken Comments Blood Pressure 112/62 02/09/2023 7:50 AM EDT Pulse 95 02/09/2023 7:50 AM EDT Temperature 36.6 C (97.8 F) 02/09/2023 7:50 AM ED T Respiratory Rate 20 02/09/2023 7:50 AM EDT Oxygen Saturation 100% 02/09/2023 7:50 AM EDT Inhaled Oxygen Concentration - - Weight 98.4 kg (217 lb) 02/09/2023 7:50 AM EDT Height 167 cm (5' 5.75") 02/09/2023 7:50 AM EDT Body Mass Index 35.29 02/09/2023 7:50 AM EDT documented in this encounter Progress Notes * Ronaldo Nunez MD - 02/09/2023 8:56 AM EDT Subjective: Tammy Multani is a 27 year old female here today for Chief Complaint Patient presents with Physical-Exam Patient presents for routine yearly physical. She reports that she is about 15 weeks . Did have some issues with nausea and fatigue earlier on but is feeling better from those. No current issues complicating the . She did feel as though her depression got a little worse and her fluoxetine dose was increased to 20 milligrams. She is doing better on that dose and would like to keep it the same. She is going to get the influenza vaccine but is going to wait another several weeks.She is considering the COVID vaccination and trying to determine if there is a better time to get it during or in the period. Labs are up-to-date. Past Medical History: Diagnosis Date Allergic rhinitis Depression with anxiety 01/21/2019 Obesity, Class I, BMI 30.0-34.9 (see actual BMI) 06/16/2011 Other acne Otitis media Panic disorder 10/14/2015 Past Surgical History: Procedure Laterality Date CREATE EARDRUM OPENING,LOCAL ANESTH 3yr both Tympanostomy CREATE EARDRUM OPENING,LOCAL ANESTH 8/00 both Tympanostomy DENTAL SURGERY PROCEDURE NEC 04/22 wisdom teeth NAIL BED, PERMANENT REMOVAL Dr. [place] Review of patient's allergies indicates: Allergen Reactions Gold Rash Penicillins rash Sulfa Antibiotics rash Current Outpatient Medications Medication Sig Dispense Refill cetirizine (ZYRTEC) 10 MG Tablet Take 1 Tab by mouth daily as needed (itching, rash). 28-0.8 MG Oral Tablet Take by mouth. FLUoxetine HCl 20 MG Oral Tablet (PROzac) take 1 tablet by mouth every morning 30 Tablet 2 No current facility-administered medications for this visit. Objective: BP 112/62 | Pulse 95 | Temp 36.6 C (97.8 F) (Infrared ) | Resp 20 | Ht 1.67 m (5' 5.75") | Wt 98.4 kg (217 lb) | LMP 10/27/2022 | SpO2 100% | BMI 35.29 kg/m | BSA 2.14 m GEN: NAD CHEST: CTA B CV: RRR ABD: Soft, NT/ND, No HSM, NABS EXT: No c,c,e Assessment and Plan: Routine medical exam (Primary) -reviewed routine preventive medicine and screening. No concerning findings. Plan on influenza vaccination in February. Consideration of COVID vaccination reviewed. Major depressive disorder, recurrent, moderate (HCC) -continue fluoxetine at 20 milligrams daily Normal in first trimester -continue with OBGYN. Call if there are issues that we can help with. Ronaldo Nunez MD documented in this encounter Nursing Notes * Mita Matthews LPN - 02/09/2023 7:49 AM EDT Chief Complaint Patient presents with Physical-Exam documented in this encounter Plan of Treatment Upcoming Encounters Date Type Specialty Care Team Description 02/22/2023 Office Visit Gynecology Obstetrics Liza Washington CRNP [address] [place] [address] 09/18/2023 Office Visit Gynecology Obstetrics Liza Washington CRNP [address] [place] [address] 02/12/2024 Office Visit Family Medicine Ronaldo Nunez MD [address] [place] [address] Health Maintenance Due Date Last Done Comments [...] as of this encounter Visit Diagnoses Diagnosis Routine medical exam- Primary Routine general medical examination at a health care facility Major depressive disorder, recurrent, moderate (HCC) Major depressive disorder, recurrent episode, moderate Normal in first trimester documented in this encounter Care Teams Chemistry Specialist Relationship Specialty Start Date End Date Ronaldo Nunez MD [address] [place] [address] PCP - General 02/13/00 documented as of this encounter
[2023-07-09] MEDS: LACTATED RINGER'S 1,000 ML IV PRN (01:04)
[2023-07-09] MEDS: OXYTOCIN 30 UNITS/NSS 30 UNITS/500 ML BAG IV PRN (01:05)
[2023-07-09] MEDS ORDERED: LIDOCAINE 2% MPF LOCAL 5 ML VIAL EPI PRN (03:02)
[2023-07-09] MEDS ORDERED: ONDANSETRON INJ 2 MG/ML 2 ML VIAL IV PRN (03:02)
[2023-07-09] MEDS ORDERED: fentANYL 2 MCG/ML BUPIVacaine 0.125%-NSS 100ML BAG EPI PRN (03:02)
[2023-07-09] MEDS ORDERED: ROPIVACAINE 0.5% PF 5 MG/ML 20 ML VIAL EPI PRN (03:02)
[2023-07-09] MEDS ORDERED: BUPIVACAINE 0.25% PF 30 ML VIAL EPI PRN (03:02)
[2023-07-09] MEDS ORDERED: NALOXONE HCL 0.4 MG/1 ML VIAL/CARP IV PRN (03:02)
[2023-07-09] MEDS ORDERED: NALBUPHINE HCL 5 MG in SYRINGE 0 ML IV PRN (03:02)
[2023-07-09] MEDS ORDERED: diphenhydrAMINE 50 MG/ML VIAL IV PRN (03:02)
[2023-07-09] MEDS ORDERED: ePHEDrine sulfate 50 MG/ML AMP IV PRN (03:02)
[2023-07-09] MEDS ORDERED: SODIUM CHLORIDE 0.9% PF INJ 10 ML VIAL EPI PRN (03:02)
[2023-07-09] MEDS ORDERED: NALOXONE HCL 1 MG in SODIUM CHLORIDE 0.9% 1,000 ML IV PRN (03:02)
[2023-07-09] MEDS ORDERED: fentaNYL citrate PF 100 MCG/2 ML VIAL EPI PRN (03:02)
--- NOTE | 2023-07-09 03:04 | Anesthesiology Consultation ---
Date of Service July 09, 2023 Assessment & Plan (1) Encounter for pre-operative examination: Chart Review Chart Review: Patient NOT seen in Pre Admission Testing and Acceptable Risk for Labor Epidural Consults Requested none History Height/Weight Height: 5 ft 5 in Weight: 116.12 kg Allergies Allergy/AdvReac Type Severity Reaction Status Date / Time Penicillins Allergy Mild Rash Verified 07/08/23 19:36 Sulfa (Sulfonamide Allergy Mild Rash Verified 07/08/23 19:36 Antibiotics) Medications Home Medications Medication Instructions Recorded Confirmed Last Taken 1 tab PO DAILY 03/10/23 07/08/23 1 Day Ago ~07/07/23 cetirizine 10 mg tablet (Zyrtec) 10 mg PO DAILY 03/10/23 07/08/23 3 Days Ago ~07/05/23 fluoxetine 20 mg tablet 20 mg PO DAILY 03/10/23 07/08/23 1 Day Ago ~07/07/23 fluticasone propionate 50 1 spray intranasal DAILY 03/10/23 07/08/23 2 Months Ago mcg/actuation nasal ~05/07/23 spray,suspension Active Medications Generic Name Dose Route Start Last Admin Trade Name Freq PRN Reason Stop Dose Admin Lactated Ringer's 1,000 mls @ 125 mls/hr 07/08/23 19:26 07/09/23 02:40 Lr IV 07/10/23 19:25 999 mls/hr .Q8H PRN Infusion L&D Protocol Protocol Oxytocin 30 units in 500 mls @ 3 mls/hr 07/09/23 00:28 07/09/23 01:50 Pitocin 30 Units/Nss IV 07/11/23 00:27 0.18 units/hr .Q24H PRN 3 mls/hr Labor Induction/Augmentation Titration Protocol 0.18 UNITS/HR Past Medical History Medical History (Updated 07/09/23 @ 03:04 by Zach Lockhart MD) Encounter for pre-operative examination Depression Anxiety Exercise / Class Metabolic Activity II 4-5 Yardwork/Stairs/Walk up hill Past Anesthesia History No Hx of Anesthesia Complications and No Family Hx of Anesthesia Complications Social History Smoking Status: Never smoker Hx Alcohol Use: No Hx Substance Use: No Physical Exam Vital Signs Last Vital Signs Temp 36.6 C 07/09/23 03:00 Pulse 102 H 07/09/23 03:22 Resp 18 02/24/24 22:48 BP 115/76 07/09/23 03:22 Pulse Ox 100 07/09/23 03:20 Testing Laboratory Results 07/08/23 20:15 Blood Type O Positive 07/08/23 20:15 Antibody Screen NEGATIVE 07/08/23 20:15
[2023-07-09] MEDS: BUPIVACAINE 0.25% PF 30 ML VIAL ONE (03:24)
[2023-07-09] MEDS: fentaNYL citrate PF 100 MCG/2 ML VIAL ONE (03:24)
[2023-07-09] MEDS: LIDOCAINE 2%/EPINEPHRINE 1:200,000 20 ML PF ONE (03:24)
[2023-07-09] MEDS: fentANYL 2 MCG/ML BUPIVacaine 0.125%-NSS 100ML BAG ONE (03:27)
[2023-07-09] MEDS: METHYLERGONOVINE MALEATE 0.2 MG/ML AMP ONE (09:25)
[2023-07-09] MEDS: miSOPROStoL 200 MCG TAB ONE (09:28)
[2023-07-09] MEDS ORDERED: bisacodyL 10 MG SUPP PR PRN (09:34)
[2023-07-09] MEDS ORDERED: OXYTOCIN 30 UNITS/NSS 30 UNITS/500 ML BAG IV PRN (09:34)
[2023-07-09] MEDS ORDERED: HYDROCORTISONE ACETATE 25 MG SUPP PR PRN (09:34)
[2023-07-09] MEDS ORDERED: ACETAMINOPHEN 325 MG TAB PO PRN (09:34)
--- NOTE | 2023-07-09 09:42 | Delivery Summary ---
Vaginal Delivery Summary Date of Service July 09, 2023 Vaginal Delivery Summary DELIVERY NOTE Patient delivered a live male in left occiput anterior presentation there was 2 tight nuchal cord which was easily reduced. was delivered and placed on mother's abdomen. Delayed cord clamping was performed. Cord blood is obtained Cord gasses are obtained Meconium is absent Placenta is spontaneously delivered. Placenta appears grossly normal and has 3 vessel cord Inspection of the perineum showed a second-degree midline laceration. Laceration is repaired in layers with 2-0 Vicryl in layers Rectal exam post repair showed good sphincter tone no sutures palpated in the rectum. Estimated blood loss is 450 cc per Infants weight and scores are in the pediatric record Mother and baby are stable in in the recovery
[2023-07-09 10:17] LABS: Base Excess Cord Arterial Bld -4.7 mEq/L (-9-1.8); CO2 Cord Arterial Blood 51 mmHg (39.1-73.5); HCO3 Cord Arterial Blood 23 mmol/L (19.7-28.5); Oxygen Sat Cord Arterial Blood < 60.0 % (<60); PO2 Cord Arterial Blood 24 mmHg (4.1-31.7); pH Cord Arterial Blood 7.26 (7.1-7.38)
[2023-07-09 10:21] LABS: Base Excess Cord Venous Blood -7.5 mEq/L (-7.7-1.9); Cord Venous Blood HCO3 18 mmol/L (18.4-26.8); Cord Venous Blood PCO2 37 mmHg (30.4-57.2); Cord Venous Blood PO2 36 mmHg (14.1-43.3); O2 Saturation Cord Venous Bld 72.9 % (<68)
--- NOTE | 2023-07-09 11:31 | Anesthesia Procedure Note ---
Date of Service July 09, 2023 Anesthesia Post Epidural Note Vital Signs Vital Signs: Temp Pulse Resp BP Pulse Ox 36.8 C 100 H 20 115/54 L 100 07/09/23 07:30 07/09/23 11:16 07/09/23 10:16 07/09/23 11:16 07/09/23 09:30 Pain Intensity Left: Pain Intensity: 7 Notes Mental Status: alert / awake / arousable and participated in evaluation Nausea / Vomiting: adequately controlled Pain: adequately controlled Airway Patency, RR, SpO2: stable & adequate BP & HR: stable & adequate Hydration State: stable & adequate Neuraxial Anesthesia: was administered and sensory block is resolving Anesthetic Complications: no major complications apparent Epidural: Removed without complications and With tip intact
[2023-07-09] MEDS: BENZOCAINE 20% SPRY 85 APPLN/85 GM CAN EXT PRN (14:41)
[2023-07-09] MEDS: IBUPROFEN 600 MG TAB PO PRN (14:43)
[2023-07-09] MEDS: BUPIVACAINE 0.25% PF 30 ML VIAL EPI STA (19:15)
[2023-07-09] MEDS: ePHEDrine sulfate 50 MG/ML AMP ONE (19:15)
[2023-07-09] MEDS: fentaNYL citrate PF 100 MCG/2 ML VIAL EPI STA (19:15)
[2023-07-09] MEDS: SODIUM CHLORIDE 0.9% PF INJ 10 ML VIAL ONE (19:15)
[2023-07-09] MEDS: miSOPROStoL 100 MCG TAB PR ONE (19:16)
[2023-07-09] MEDS: METHYLERGONOVINE MALEATE 0.2 MG/ML AMP IM ONE (19:16)
[2023-07-09] MEDS: LIDOCAINE 2%/EPINEPHRINE 1:200,000 20 ML PF EPI STA (19:16)
[2023-07-09] MEDS: SODIUM CHLORIDE 0.9% PF INJ 10 ML VIAL EPI STA (19:16)
[2023-07-09] MEDS: DOCUSATE SODIUM 100 MG CAP PO SCH (20:02)
[2023-07-09] MEDS: DIPHTHER/TETAN/PERTUS Vaccine (Tdap, Adol/Adult) 0.5mL IM ONE (21:11)
[2023-07-10] MEDS: PRENATAL VITAMIN 1 TAB PO SCH (07:16)
[2023-07-10 07:18] LABS: Hematocrit (blood only) 33.4 % (37.0-47.0); Hemoglobin 11.3 g/dl (12.0-16.0); Mean Corpuscular Hemoglobin 29.6 pg (25.0-34.0); Mean Corpuscular Hgb Conc 33.8 g/dL (32.0-36.0); Mean Corpuscular Volume 87.4 fL (80.0-100.0); Mean Platelet Volume 9.6 fL (9.4-12.4); Platelet Count 252 K/uL (130-400); RDW Coefficient of Variation 13.2 % (11.5-14.5); RDW Standard Deviation 41.1 fL (36.4-46.3); Red Blood Count 3.82 M/uL (4.20-5.40); White Blood Count 16.03 K/ul (4.8-10.8)
--- NOTE | 2023-07-10 10:06 | Obstetrical Progress Note ---
Date of Service July 10, 2023 Subjective Ambulation: ambulating normally Voiding: no voiding problems Passing Gas:: Yes Diet Tolerance:: regular diet Lochia:: Small Feeding Type:: breast feeding Current Pain Level(1-10): 0 plans for d/c in AM Physical Exam Constitutional WD/WN, vitals as above Gastrointestinal (Abdomen) Inspection/Auscultation: abdomen normal to inspection fundus firm below U and non-tender Musculoskeletal Extremities: extremities normal to inspection Skin no rashes, warm and dry Neurologic patellar DTR's 2+ bilat, sensation intact Psychiatric A+Ox3, euthymic affect Results & Data Vital Signs (Past 12 Hours) Vital Signs Temp Pulse Resp BP Pulse Ox O2 Del Method 07/10/23 07:17 36.4 C L 75 18 94/63 L 99 Room Air 07/10/23 03:05 36.8 C 73 18 100/67 99 Room Air 07/10/23 00:30 36.7 C 70 18 98/61 L 98 Room Air Laboratory Results 07/08/23 07/09/23 07/09/23 20:15 07:07 07:07 WBC 17.23 H RBC 3.93 L Hgb 11.6 L Hct 33.9 L MCV 86.3 MCH 29.5 MCHC 34.2 RDW Std Deviation 39.6 RDW Coeff of Debbi 12.7 Plt Count 291 MPV 9.7 Cord ABG pH 7.26 Cord ABG pCO2 51 Cord ABG pO2 24 Cord ABG HCO3 23 Cord ABG Base Excess -4.7 Cord ABG O2 Sat < 60.0 Cord VBG pH 7.30 Cord VBG pCO2 37 Cord VBG pO2 36 Cord VBG HCO3 18 L Cord VBG Base Excess -7.5 Cord VBG O2 Sat 72.9 H Blood Gas Comments CAGE CAGE Blood Type O Positive Antibody Screen NEGATIVE Crossmatch See Detail 07/10/23 06:52 WBC 16.03 H RBC 3.82 L Hgb 11.3 L Hct 33.4 L MCV 87.4 MCH 29.6 MCHC 33.8 RDW Std Deviation 41.1 RDW Coeff of Debbi 13.2 Plt Count 252 MPV 9.6 Cord ABG pH Cord ABG pCO2 Cord ABG pO2 Cord ABG HCO3 Cord ABG Base Excess Cord ABG O2 Sat Cord VBG pH Cord VBG pCO2 Cord VBG pO2 Cord VBG HCO3 Cord VBG Base Excess Cord VBG O2 Sat Blood Gas Comments Blood Type Antibody Screen Crossmatch
[2023-07-10] MEDS: bisacodyL 5 MG TABEC PO SCH (20:39)
[2023-07-10] MEDS: FLUoxetine HCL 20 MG CAP PO SCH (20:39)
[2023-07-11 06:48] LABS: Hematocrit (blood only) 33.3 % (37.0-47.0); Hemoglobin 11.1 g/dl (12.0-16.0)
--- NOTE | 2023-07-11 07:52 | Obstetrical Progress Note ---
Date of Service July 11, 2023 Assessment & Plan (1) Normal course: Continue routine care Discharge instructions will be given to the patient, follow-up in clinic Discharge home today Subjective Ambulation: ambulating normally Voiding: no voiding problems Passing Gas:: Yes Diet Tolerance:: regular diet Lochia:: Moderate Feeding Type:: breast feeding Current Pain Level(1-10): 1 Patient doing well, has had issues with latching and pumping colostrum and then giving to baby. Is having bowel movements. No other complaints. Wants to go home today Physical Exam Constitutional WD/WN, vitals as above Respiratory normal respiratory effort, lungs clear to auscultation Cardiovascular RRR, no murmur, no edema Gastrointestinal (Abdomen) normal bowel sounds, soft, nontender, no hepatosplenomegaly Fundus below umbilicus Results & Data Vital Signs (Past 12 Hours) Vital Signs Temp Pulse Resp BP Pulse Ox O2 Del Method 07/10/23 23:45 36.7 C 91 H 20 104/71 99 Room Air Laboratory Results Laboratory Results WBC 16.03 K/ul (4.8-10.8) H 07/10/23 06:52 RBC 3.82 M/uL (4.20-5.40) L 07/10/23 06:52 Hgb 11.1 g/dl (12.0-16.0) L 07/11/23 06:27 Hct 33.3 % (37.0-47.0) L 07/11/23 06:27 MCV 87.4 fL (80.0-100.0) 07/10/23 06:52 MCH 29.6 pg (25.0-34.0) 07/10/23 06:52 MCHC 33.8 g/dL (32.0-36.0) 07/10/23 06:52 RDW Std Deviation 41.1 fL (36.4-46.3) 07/10/23 06:52 RDW Coeff of Debbi 13.2 % (11.5-14.5) 07/10/23 06:52 Plt Count 252 K/uL (130-400) 07/10/23 06:52 MPV 9.6 fL (9.4-12.4) 07/10/23 06:52 Cord ABG pH 7.26 (7.1-7.38) 07/09/23 07:07 Cord ABG pCO2 51 mmHg (39.1-73.5) 07/09/23 07:07 Cord ABG pO2 24 mmHg (4.1-31.7) 07/09/23 07:07 Cord ABG HCO3 23 mmol/L (19.7-28.5) 07/09/23 07:07 Cord ABG Base Excess -4.7 mEq/L (-9-1.8) 07/09/23 07:07 Cord ABG O2 Sat < 60.0 % (<60) 07/09/23 07:07 Cord VBG pH 7.30 (7.20-7.44) 07/09/23 07:07 Cord VBG pCO2 37 mmHg (30.4-57.2) 07/09/23 07:07 Cord VBG pO2 36 mmHg (14.1-43.3) 07/09/23 07:07 Cord VBG HCO3 18 mmol/L (18.4-26.8) L 07/09/23 07:07 Cord VBG Base Excess -7.5 mEq/L (-7.7-1.9) 07/09/23 07:07 Cord VBG O2 Sat 72.9 % (<68) H 07/09/23 07:07 Blood Gas Comments CAGE 07/09/23 07:07 Blood Gas Comments CAGE 07/09/23 07:07 Blood Type O Positive 07/08/23 20:15 Antibody Screen NEGATIVE 07/08/23 20:15 Crossmatch See Detail 07/08/23 20:15
== END 2023-07-11 12:40 | disposition home or self-care (01) | DRG 807 ==
LOC: OPB 18:44 → 4S1 18:45 → 4E2 07-09 14:15